=== PATIENT | male | born 1940 | race Caucasian/White ===

== ENCOUNTER 2018-05-19 19:16 | Emergency (ER) | payer OTHER ==
--- OUTSIDE RECORDS SUMMARY | 2018-05-19 19:19 | XMS REPORT | Clinical Summary ---
:1940 Author Organization [facility] Address [address] [place] [address] Care Team Providers Name Role Phone Johnathan Dozier MD Primary Care Provider Allergies Active Allergy Reactions Severity Noted Date Comments No Known Drug Allergies Medications Medication Sig Dispensed Refills Start Date End Date Status XIIDRA 5 % INSTILL ONE 5 03/01/2017 Active dropperette (1) DROP INTO BOTH EYES TWICE DAILY. simvastatin (ZOCOR) TAKE ONE (1) 90 tablet 3 08/27/2017 Active 20 MG TABLET(S) BY tabletIndications: MOUTH ONCE A Hyperlipidemia, DAY. unspecified hyperlipidemia type simvastatin (ZOCOR) TAKE 1 TAB PO 90 tablet 3 07/18/2016 06/13/2017 Discontinued 20 MG QD tabletIndications: Hyperlipidemia, unspecified hyperlipidemia type thyroid, pork, 0 05/13/2016 05/21/2017 Discontinued (ARMOUR THYROID) 30 mg tablet simvastatin (ZOCOR) Take 1 tablet 90 tablet 3 06/13/2017 08/27/2017 Discontinued 20 MG (20 mg total) tabletIndications: by mouth Hyperlipidemia, nightly. unspecified hyperlipidemia type Active Problems Problem Noted Date Coronary arteriosclerosis 11/20/2016 Peripheral vascular disease 11/20/2016 History of coronary artery bypass surgery 05/15/2016 Hyperlipidemia 05/15/2016 Hypogonadism in male 10/08/2010 Encounters Date Type Specialty Care Team Description 08/27/2017 Refill Cardiology Nghia Olson MD Med Refill 06/13/2017 Orders Only Cardiology Frandy Garcia MA Hyperlipidemia, unspecified hyperlipidemia type 05/21/2017 Office Visit Cardiology Nghia Olson MD History of coronary artery bypass surgery (Primary Dx) after 05/18/2017 Social History Tobacco Use Types Packs/Day Years Used Date Never Smoker Smokeless Tobacco: Never Used Sex Assigned at Date Recorded Not on file Job Start Date Occupation Industry Not on file Not on file Not on file Travel History Travel Start Travel End No recent travel history available. Last Filed Vital Signs Vital Sign Reading Time Taken Blood Pressure 140/68 05/21/2017 10:10 AM CDT Pulse 70 05/21/2017 10:10 AM CDT Temperature - - Respiratory Rate - - Oxygen Saturation - - Inhaled Oxygen Concentration - - Weight 73.9 kg (163 lb) 05/21/2017 10:10 AM CDT Height 165.1 cm (5' 5") 05/21/2017 10:10 AM CDT Body Mass Index 27.12 05/21/2017 10:10 AM CDT Plan of Treatment Date Type Specialty Care Team Description 05/20/2018 Office Visit Cardiology Nghia Olson MD [address] [address] Health Maintenance Due Date Last Done Comments SHINGLES VACCINES (#1) 1988 65+ PNEUMOCOCCAL VACCINE (1 of 2 - PCV13) 09/20/2003 PNEUMOCOCCAL POLYSACCHARIDE VACCINE AGE 65 AND OVER 09/20/2003 INFLUENZA VACCINE 09/25/2017 Results Not on fileafter 05/18/2017 Insurance Payer Benefit Plan / Group Subscriber ID Type Phone Address [employer] MEDICARE HU[employer]NA MEDICARE PPO/PFFS/[facility] xxxxxxxxx PPO Advance Directives Patient has advance care planning documents on file. For more information, please contact:Eleazar Espinoza[address] [place] [address]
--- NOTE | 2018-05-19 20:31 | RAD REPORT ---
EXAM DESCRIPTION: RAD - Knee Right 3 View - 05/19/2018 8:07 pm CLINICAL HISTORY: Pain;Deformity COMPARISON: No comparisons FINDINGS: A patella fracture is present with moderate distraction of the fracture fragments. Moderat e soft tissue swelling is evident. Chondrocalcinosis is seen of the menisci.
--- NOTE | 2018-05-19 20:35 | ER ---
Nurse's Notes [facility] Name: Saeid Rosas Age: 77 yrs Sex: Male : 1940 Arrival Date: 05/19/2018 Time: 19:09 Bed 30 Private MD: Diagnosis: Displaced transverse fracture of right patella Presentation: 05/19 19:09 Presenting complaint: EMS states: fell walking in front yard, tripped, landed on his knee, has obvious knee deformity R knee. Transition of care: patient was not received from another setting of care. Onset of symptoms was May 19, 2018 at 18:20. Risk Assessment: Do you want to hurt yourself or someone else? Patient reports no desire to harm self or others. Initial Sepsis Screen: Does the patient meet any 2 criteria? No. Patient's initial sepsis screen is negative. Does the patient have a suspected source of infection? No. Patient's initial sepsis screen is negative. Care prior to arrival: None. 19:09 Method Of Arrival: EMS: [facility] 19:09 Acuity: ANDREA 3 ch Historical: - Allergies: 19:17 No Known Allergies; ch - Home Meds: 19:17 Simvastatin Oral [Active]; armor thyroid [Active]; aspirin 81 mg Oral chew 1 tab once ch daily [Active]; - PMHx: 19:17 Hyperlipidemia; Myocardial infarction; Hypothyroidism; Back pain; ch - PSHx: 19:17 cardiac bypass; laminectomy; Appendectomy; Tonsillectomy; ch - Immunization history:: Adult Immunizations up to date. - Social history:: Smoking status: Patient/guardian denies using tobacco, Patient/guardian denies using alcohol, street drugs. - Ebola Screening: : Patient negative for fever greater than or equal to 101.5 degrees Fahrenheit, and additional compatible Ebola Virus Disease symptoms Patient denies exposure to infectious person Patient denies travel to an Ebola-affected area in the 21 days before illness onset No symptoms or risks identified at this time. - Family history:: not pertinent. - Hospitalizations: : No recent hospitalization is reported. Screenin:35 Abuse screen: Denies threats or abuse. Denies injuries from another. Nutritional aa1 screening: No deficits noted. Tuberculosis screening: No symptoms or risk factors identified. Fall Risk Fall in past 12 months (25 points). Assessment: 19:35 General: Appears in no apparent distress. comfortable, Behavior is calm, cooperative, aa1 appropriate for age. Pain: Complains of pain in right knee Pain currently is 3 out of 10 on a pain scale. Quality of pain is described as aching. Neuro: Level of Consciousness is awake, alert, obeys commands, Oriented to person, place, time, situation, Moves all extremities. Speech is normal. Respiratory: Airway is patent Respiratory effort is even, unlabored, Respiratory pattern is regular, symmetrical. GI: No signs and/or symptoms were reported involving the gastrointestinal system. : No signs and/or symptoms were reported regarding the genitourinary system. EENT: No signs and/or symptoms were reported regarding the EENT system. Derm: Skin is intact, is healthy with good turgor, Skin is pink, warm \T\ dry. Musculoskeletal: Circulation, motion, and sensation intact. Capillary refill < 3 seconds, Range of motion: limited in right knee Swelling present in right knee. 20:55 Reassessment: Patient appears in no apparent distress at this time. Patient and/or aa1 family updated on plan of care and expected duration. Pain level reassessed. Patient is alert, oriented x 3, equal unlabored respirations, skin warm/dry/pink. Discussed d/c \T\ f/u instructions with pt; denies questions or concerns at this time. 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 Will d/c pt once his ride has arrived with his clothes. 21:43 Reassessment: Patient appears in no apparent distress at this time. Patient is alert, aa1 oriented x 3, equal unlabored respirations, skin warm/dry/pink. Pt's ride present and dc'd home at this time. Vital Signs: 19:17 BP 147 / 69; Pulse 88; Resp 16; Temp 97.9; Pulse Ox 99% on R/A; Pain 4/10; ch 20:00 BP 142 / 69; Pulse 68; Resp 18; Pulse Ox 97% on R/A; Pain 3/10; aa1 20:31 BP 129 / 53 LA (auto/reg); Pulse 83; Pulse Ox 98% on R/A; Pain 4/10; jp3 ED Course: 19:09 Patient arrived in ED. 19:10 Triage completed. 19:11 Enrique Hudson MD is Attending Physician. rn 19:17 Arm band placed on left wrist. Patient placed in an exam room, on a stretcher, on pulse ch oximetry. 19:35 Patient has correct armband on for positive identification. Bed in low position. Call aa1 light in reach. Pulse ox on. NIBP on. Warm blanket given. 19:45 Ice pack to injury. jp3 20:08 XRAY Knee RIGHT 3 view In Process Unspecified. EDMS 20:28 Cecelia Jean, RN is Primary Nurse. aa1 20:39 No provider procedures requiring assistance completed. Patient did not have IV access aa1 during this emergency room visit. 21:04 Crutch training done. Knee immobilizer applied on right knee. jp3 Administered Medications: No medications were administered Outcome: 20:34 Discharge ordered by MD. rn 21:43 Discharged to home with crutches, with family, with friend. aa1 21:43 Condition: good 21:43 Discharge instructions given to patient, family, Instructed on discharge instructions, follow up and referral plans. medication usage, crutch walking, Demonstrated understanding of instructions, follow-up care, medications, crutch walking, Prescriptions given X 1. 21:44 Patient left the ED. aa1 Signatures: Dispatcher [employer] EDHI Christina Zamora, MIKE MCKEON Cecelia Jean, MIKE RN aa1 Enrique Hudson MD MD rn Pisarski, Jacob jp3
--- NOTE | 2018-05-19 20:35 | EDPHYS ---
Physician Documentation [facility] Name: Saeid Rosas Age: 77 yrs Sex: Male : 1940 Arrival Date: 05/19/2018 Time: 19:09 Bed 30 Private MD: ED Physician Enrique Hudson HPI: 05/19 19:33 This 77 yrs old Male presents to ER via EMS with complaints of Knee Injury, rn Fall Injury. 19:33 Details of fall: The patient fell from an upright position, while walking. Onset: The rn symptoms/episode began/occurred just prior to arrival. Associated injuries: The patient sustained right knee. Severity of symptoms: At their worst the symptoms were moderate, in the emergency department the symptoms are unchanged. The patient has not experienced similar symptoms in the past. Reports fall from standing, hit right knee directly, unable to walk on that leg, no other injuries, takes daily aspirin.. Historical: - Allergies: 19:17 No Known Allergies; ch - Home Meds: 19:17 Simvastatin Oral [Active]; armor thyroid [Active]; aspirin 81 mg Oral chew 1 tab once ch daily [Active]; - PMHx: 19:17 Hyperlipidemia; Myocardial infarction; Hypothyroidism; Back pain; ch - PSHx: 19:17 cardiac bypass; laminectomy; Appendectomy; Tonsillectomy; ch - Immunization history:: Adult Immunizations up to date. - Social history:: Smoking status: Patient/guardian denies using tobacco, Patient/guardian denies using alcohol, street drugs. - Ebola Screening: : Patient negative for fever greater than or equal to 101.5 degrees Fahrenheit, and additional compatible Ebola Virus Disease symptoms Patient denies exposure to infectious person Patient denies travel to an Ebola-affected area in the 21 days before illness onset No symptoms or risks identified at this time. - Family history:: not pertinent. - Hospitalizations: : No recent hospitalization is reported. ROS: 19:33 Constitutional: Negative for fever, chills, and weight loss, Neck: Negative for injury, rn pain, and swelling, Cardiovascular: Negative for chest pain, palpitations, and edema, Abdomen/GI: Negative for abdominal pain, nausea, vomiting, diarrhea, and constipation, Back: Negative for injury and pain, MS/Extremity: + right knee injury and pain Skin: Negative for injury, rash, and discoloration, Neuro: Negative for headache, weakness, numbness, tingling, and seizure. Exam: 19:33 Constitutional: This is a well developed, well nourished patient who is awake, alert, rn and in no acute distress. MS/ Extremity: Pulses equal, no cyanosis. + swelling anterior to right patella, very minimal to no extensor movement of right knee. No tenderness along right hip/femur, no tenderness along tib/fib/ankle/foot on right side. Neuro: Awake and alert, GCS 15, oriented to person, place, time, and situation. Sensory grossly intact. Vital Signs: 19:17 BP 147 / 69; Pulse 88; Resp 16; Temp 97.9; Pulse Ox 99% on R/A; Pain 4/10; ch 20:00 BP 142 / 69; Pulse 68; Resp 18; Pulse Ox 97% on R/A; Pain 3/10; aa1 20:31 BP 129 / 53 LA (auto/reg); Pulse 83; Pulse Ox 98% on R/A; Pain 4/10; jp3 MDM: 19:11 Patient medically screened. rn 20:31 Differential diagnosis: contusion, fracture, sprain. Data reviewed: vital signs, nurses rn notes, radiologic studies, plain films, and as a result, I will discharge patient. Counseling: I had a detailed discussion with the patient and/or guardian regarding: the historical points, exam findings, and any diagnostic results supporting the discharge/admit diagnosis, radiology results, the need for outpatient follow up, to return to the emergency department if symptoms worsen or persist or if there are any questions or concerns that arise at home. Response to treatment: the patient's symptoms have mildly improved after treatment, and as a result, I will discharge patient. Special discussion: I discussed with the patient/guardian in detail that at this point there is no indication for admission to the hospital. It is understood, however, that if the symptoms persist or worsen the patient needs to return immediately for re-evaluation. Based on the history and exam findings, there is no indication for further emergent testing or inpatient evaluation. I discussed with the patient/guardian the need to see the orthopedic surgeon for further evaluation of the symptoms. ED course: Consulted with Dr. Moya, recommends dc home with knee immobilizer and crutches, and f/u in next 2 days. . 05/19 19:22 Order name: XRAY Knee RIGHT 3 view; Complete Time: 20:35 rn 05/19 20:08 Order name: Knee Immobilizer; Complete Time: 21:03 rn 05/19 20:30 Order name: Crutches; Complete Time: 21:03 rn Administered Medications: No medications were administered Disposition: 05/19/18 20:34 Discharged to Home. Impression: Displaced transverse fracture of right patella. - Condition is Stable. - Discharge Instructions: Patellar Fracture, Adult. - Prescriptions for Tylenol- Codeine #3 300-30 mg Oral Tablet - take 1 tablet by ORAL route every 6 hours As needed; 20 tablet. - Medication Reconciliation Form, Thank You Letter, Antibiotic Education, Prescription Opioid Use form. - Follow up: Private Physician; When: As needed; Reason: Recheck today's complaints, Re-evaluation by your physician. - Problem is new. - Symptoms have improved. Signatures: Dispatcher [employer] EDMS Christina Zamora RN RN Cecelia Jean RN RN aa1 Enrique Hudson MD MD internal corrosion specialist: (The following items were deleted from the chart) 21:44 20:34 05/19/2018 20:34 Discharged to Home. Impression: Displaced transverse fracture of aa1 right patella. Condition is Stable. Forms are Medication Reconciliation Form, Thank You Letter, Antibiotic Education, Prescription Opioid Use. Follow up: Private Physician; When: As needed; Reason: Recheck today's complaints, Re-evaluation by your physician. Problem is new. Symptoms have improved. rn
== END 2018-05-19 21:44 | disposition home or self-care (01) ==
LOC: ER 19:16
DX: S82.001A Unspecified fracture of right patella, initial encounter for closed fracture (principal); W01.0XXA Fall on same level from slipping, tripping and stumbling without subsequent striking against object, initial encounter; Y93.9 Activity, unspecified; Y92.007 Garden or yard of unspecified non-institutional (private) residence as the place of occurrence of the external cause; E03.9 Hypothyroidism, unspecified; E78.5 Hyperlipidemia, unspecified
CPT/HCPCS: 99284

== ENCOUNTER 2020-12-26 05:57 | Observation (INO) | payer OTHER ==
[2020-12-26 07:33] LABS: Basophils % 1.1 % (0-1.3); Hematocrit 43.3 % (39.6-49.0); Lymphocytes % 23.6 % (15.3-44.8); MPV 8.5 fL (7.6-11.3); RBC Red Blood Cell Count 4.69 M/uL (4.33-5.43)
[2020-12-26 07:41] LABS: Protime INR 0.91
[2020-12-26 07:54] LABS: ALT/SGPT 21 U/L (12-78); AST/SGOT 22 U/L (15-37); Albumin 3.9 g/dL (3.4-5.0); Alkaline Phosphatase 65 U/L (45-117); BUN Blood Urea Nitrogen 14 mg/dL (7-18); Bicarbonate 28 mmol/L (21-32); Bilirubin Direct 0.2 mg/dL (0-0.2); Bilirubin Total 0.6 mg/dL (0.2-1.0); Glucose Level 109 mg/dL (74-106); Magnesium 2.3 mg/dL (1.8-2.4); NT PRO-BNP 184 pg/mL (<450); Potassium 4.4 mmol/L (3.5-5.1); Protein, Total 7.7 g/dL (6.4-8.2); Sodium Level 143 mmol/L (136-145); Troponin (Emerg Dept Use Only) < 0.02 ng/mL (0.0-0.045)
--- NOTE | 2020-12-26 08:23 | ER ---
Nurse's Notes [facility] Name: Saeid Rosas Age: 80 yrs Sex: Male : 1940 Arrival Date: 12/26/2020 Time: 06:02 Bed 20 Private MD: Diagnosis: Chest pain, unspecified Presentation: 12/26 06:22 Chief complaint: Patient states: Reports waking up about 0400 and had a discomfort to lp1 chest; Denies any dizziness, shortness of breath, N/V. Coronavirus screen: At this time, the client does not indicate any symptoms associated with coronavirus-19. Ebola Screen: No symptoms or risks identified at this time. Initial Sepsis Screen: Does the patient meet any 2 criteria? No. Patient's initial sepsis screen is negative. Does the patient have a suspected source of infection? No. Patient's initial sepsis screen is negative. Risk Assessment: Do you want to hurt yourself or someone else? Patient reports no desire to harm self or others. Onset of symptoms was December 26, 2020 at 04:00. 06:22 Method Of Arrival: Ambulatory lp1 06:22 Acuity: ANDREA 3 lp1 Historical: - Allergies: 06:23 No Known Allergies; lp1 - Home Meds: 06:23 aspirin 81 mg Oral chew 1 tab once daily [Active]; lp1 - PMHx: 06:23 Back pain; Hyperlipidemia; Hypothyroidism; Myocardial infarction; lp1 - PSHx: 06:23 heart stents; lp1 - Immunization history:: Adult Immunizations up to date. - Social history:: Smoking status: Patient denies any tobacco usage or history of. Screenin:20 Abuse screen: Denies threats or abuse. Nutritional screening: No deficits noted. cc4 Tuberculosis screening: No symptoms or risk factors identified. Fall Risk None identified. Assessment: 06:20 General: Appears in no apparent distress. Behavior is calm, cooperative. Pain: Denies cc4 pain. Complains of pain in chest pressure "1" on pain scale Pain does not radiate. Pain currently is 0 out of 10 on a pain scale. at worst was 1 out of 10 on a pain scale. Quality of pain is described as pressure, Pain began 0400 12/26/2020. Neuro: No deficits noted. Level of Consciousness is awake, alert, obeys commands, Oriented to person, place, time, situation. Cardiovascular: Denies chest pain, States, "I didn't have chest pain", "My chest didn't feel right when I woke up \\T\\ 4:00 this morning", "Maybe some pressure". 06:20 General: EKG done; # 20 g angiocath inserted right peripheral wrist x 2 attempts with cc4 blood drawn \\T\\ sent to lab.. Respiratory: No deficits noted. Breath sounds are clear bilaterally. Denies any SOB. GI: No signs and/or symptoms were reported involving the gastrointestinal system. Abdomen is round Bowel sounds present X 4 quads. : No signs and/or symptoms were reported regarding the genitourinary system. EENT: No signs and/or symptoms were reported regarding the EENT system. Eyes clear. Nares are clear. Derm: No deficits noted. Skin is intact. Musculoskeletal: No deficits noted. Capillary refill < 3 seconds, Range of motion: intact in all extremities. 06:35 Cardiovascular: Denies chest pain, Continued SR with couplets \\T\\ short runs of bigeminy cc4 PVC's noted with O2 applied \\T\\ 2L/NBP; denies SOB or chest pain. 07:16 Reassessment: small engine technician at bedside for blood re-draw. sl2 07:52 Reassessment: Patient AAO x 3. sitting up in bed, shows no signs of acute distress or sl2 discomfort, denies chest pain or pressure, denies having any untoward symptoms at this time. Pain: Denies pain. Neuro: No deficits noted. Level of Consciousness is awake, alert, obeys commands, Oriented to person, place, time, situation, Identity Management Developer are equal bilaterally Moves all extremities. Gait is steady, Speech is normal, Facial symmetry appears normal. Cardiovascular: Denies chest pain, fatigue, lightheadedness, nausea, palpitations, shortness of breath, syncope, Rhythm is sinus rhythm with unifocal PVCs. Respiratory: No deficits noted. Breath sounds are clear bilaterally. GI: No signs and/or symptoms were reported involving the gastrointestinal system. Abdomen is round Bowel sounds present X 4 quads. : No signs and/or symptoms were reported regarding the genitourinary system. EENT: No signs and/or symptoms were reported regarding the EENT system. Derm: No deficits noted. No signs and/or symptoms reported regarding the dermatologic system. Skin is intact, Skin is dry, Skin is pink, warm \\T\\ dry. Skin temperature is warm. Musculoskeletal: No signs and/or symptoms reported regarding the musculoskeletal system. Capillary refill < 3 seconds, Range of motion: intact in all extremities. 09:27 Reassessment: nasal swab specimen for Covid collected and sent to lab. [facility] 10:28 Reassessment: Patient sitting up comfortably in bed - denies chest pain or any untoward [facility] symptoms at this time, will continue to re-assess and monitor. Awaiting bed assignment for inpatient admission. 12:11 Reassessment: Nursing report given to Romelia Rivera for inpatient admission to room 2 213. Vital Signs: 06:12 BP 179 / 82; Pulse 75; Resp 20; Temp 97.8(O); Pulse Ox 100% on R/A; cc4 06:22 BP 179 / 82; Pulse 70; Resp 18; Pulse Ox 100% on R/A; Weight 73.48 kg (R); Height 5 ft. lp1 7 in. (170.18 cm); Pain 5/10; 06:35 BP 186 / 85; Pulse 65; Resp 20; Pulse Ox 99% on R/A; cc4 07:51 BP 149 / 69; Pulse 71; Resp 18; Temp 97.9(O); Pulse Ox 99% on R/A; sl2 08:00 BP 134 / 80; Pulse 66; Resp 18; Pulse Ox 99% on R/A; sl2 08:30 BP 171 / 70; Pulse 61; Resp 18; Temp 97.8(O); Pulse Ox 99% on R/A; sl2 09:30 BP 157 / 82; Pulse 67; Resp 18; Temp 97.9(O); Pulse Ox 99% on R/A; sl2 10:00 BP 177 / 75; Pulse 69; Resp 18; Pulse Ox 99% on R/A; sl2 11:30 BP 166 / 88; Pulse 77; Resp 18; Temp 97.9; Pulse Ox 99% on R/A; sl2 11:52 BP 166 / 76; Pulse 68; Resp 18; Pulse Ox 99% on R/A; sl2 06:22 Body Mass Index 25.37 (73.48 kg, 170.18 cm) lp1 Vitals: 06:35 Cardiac Rhythm Assessment Irregular Sinus rhythm Other \\T\\ intermittent bigeminy PVC's; cc4 O2 sat 99% on RA; O2 applied \\T\\ 2 L/NBP; O2 sat increased to 100%; reports h/o PVC's; reports h/o of bypass heart surgery unknown year. ED Course: 06:02 Patient arrived in ED. bp1 06:06 Viraj Yo PA is PHCP. jm 06:06 Deion Alcantara MD is Attending Physician. jmm 06:21 XRAY Chest (1 view) In Process Unspecified. EDMS 06:23 Triage completed. lp1 06:24 Arm band placed on. lp1 06:24 Patient has correct armband on for positive identification. Placed in gown. Cardiac lp1 monitor on. Pulse ox on. NIBP on. 06:24 Patient maintains SpO2 saturation greater than 95% on room air. lp1 06:47 Joelle De Souza, RN is Primary Nurse. cc4 07:09 CBC with Diff Sent. cc4 07:09 LFT's Sent. cc4 07:09 Magnesium Sent. cc4 07:09 NT PRO-BNP Sent. cc4 07:10 PT-INR Sent. cc4 07:10 Troponin (emerg Dept Use Only) Sent. cc4 07:10 Basic Metabolic Panel Sent. cc4 07:10 Basic Metabolic Panel Sent. cc4 08:22 Lorraine Lancaster MD is Hospitalizing Provider. [facility] 12:13 No provider procedures requiring assistance completed. Patient admitted, IV remains in sl2 place. Administered Medications: No medications were administered Outcome: 08:22 Decision to Hospitalize by Provider. [facility] 12:13 Admitted to Med/surg accompanied by tech, room 213, with oxygen, on monitor, with sl2 chart, Report called to Romelia Rivera RN. 12:13 Condition: stable 12:13 Instructed on the need for admit. 13:06 Patient left the ED. sl2 Signatures: Dispatcher [employer] EDMS Viraj Yo PA PA Eula Moore, RN RN lp1 Yesi Agrawal [facility] Joelle De Souza, MIKE RN cc4 Randa Coyle RN RN sl2 Corrections: (The following items were deleted from the chart) 10:51 10:30 BP 120 / 88; Pulse 98bpm; Resp 16bpm; Pulse Ox 98% RA; Temp 98.5F Oral; sl2 sl2 10:51 10:49 Reassessment: Patient denies nausea at this time - however c/o headache . sl2 Will notify EDP of same. sl2
--- NOTE | 2020-12-26 08:23 | EDPHYS ---
Physician Documentation [facility] Name: Saeid Rosas Age: 80 yrs Sex: Male : 1940 Arrival Date: 12/26/2020 Time: 06:02 Bed 20 Private MD: ED Physician Deion Alcantara HPI: 12/26 06:13 This 80 yrs old Male presents to ER via Unassigned with complaints of Chest jmm Pressure. 06:13 Onset: The symptoms/episode began/occurred this morning, at 04:00. Associated signs and jmm symptoms: Pertinent negatives: abdominal pain, cough. Modifying factors: The patient symptoms are alleviated by nothing, the patient symptoms are aggravated by nothing. The patient has not experienced similar symptoms in the past. This is an 80-year-old male with history of coronary artery disease and presents emerge department with complaints of substernal chest discomfort which will occasionally radiate to the back. This began at approximately 4 AM this morning. Patient states he has had previous stents. Patient did take aspirin earlier this morning. Denies shortness of breath, cough, fever, abdominal pain. Historical: - Allergies: 06:23 No Known Allergies; lp1 - Home Meds: 06:23 aspirin 81 mg Oral chew 1 tab once daily [Active]; lp1 - PMHx: 06:23 Back pain; Hyperlipidemia; Hypothyroidism; Myocardial infarction; lp1 - PSHx: 06:23 heart stents; lp1 - Immunization history:: Adult Immunizations up to date. - Social history:: Smoking status: Patient denies any tobacco usage or history of. ROS: 06:13 Constitutional: Negative for fever, chills, and weight loss. jmm 06:13 Cardiovascular: Positive for chest pain. 06:13 Back: Positive for radiated pain. 06:13 All other systems are negative. Exam: 06:13 Constitutional: This is a well developed, well nourished patient who is awake, alert, jmm and in no acute distress. Head/Face: atraumatic. Eyes: EOMI, no conjunctival erythema appreciated ENT: Moist Mucus Membranes Neck: Trachea midline, Supple Chest/axilla: Normal chest wall appearance and motion. 06:13 Respiratory: Normal respirations, no respiratory distress appreciated Abdomen/GI: Non distended, soft Back: Normal ROM Skin: General appearance color normal MS/ Extremity: Moves all extremities, no obvious deformities appreciated, no edema noted to the lower extremities Neuro: Awake and alert, normal gait Psych: Behavior is normal, Mood is normal, Patient is cooperative and pleasant 06:13 Cardiovascular: Rate: normal. Vital Signs: 06:12 BP 179 / 82; Pulse 75; Resp 20; Temp 97.8(O); Pulse Ox 100% on R/A; cc4 06:22 BP 179 / 82; Pulse 70; Resp 18; Pulse Ox 100% on R/A; Weight 73.48 kg (R); Height 5 ft. lp1 7 in. (170.18 cm); Pain 5/10; 06:35 BP 186 / 85; Pulse 65; Resp 20; Pulse Ox 99% on R/A; cc4 07:51 BP 149 / 69; Pulse 71; Resp 18; Temp 97.9(O); Pulse Ox 99% on R/A; sl2 08:00 BP 134 / 80; Pulse 66; Resp 18; Pulse Ox 99% on R/A; sl2 08:30 BP 171 / 70; Pulse 61; Resp 18; Temp 97.8(O); Pulse Ox 99% on R/A; sl2 09:30 BP 157 / 82; Pulse 67; Resp 18; Temp 97.9(O); Pulse Ox 99% on R/A; sl2 10:00 BP 177 / 75; Pulse 69; Resp 18; Pulse Ox 99% on R/A; sl2 11:30 BP 166 / 88; Pulse 77; Resp 18; Temp 97.9; Pulse Ox 99% on R/A; sl2 11:52 BP 166 / 76; Pulse 68; Resp 18; Pulse Ox 99% on R/A; sl2 06:22 Body Mass Index 25.37 (73.48 kg, 170.18 cm) lp1 MDM: 06:12 Patient medically screened. jaquan 08:21 Data reviewed: vital signs, nurses notes. Counseling: I had a detailed discussion with jaquan the patient and/or guardian regarding: the historical points, exam findings, and any diagnostic results supporting the discharge/admit diagnosis, lab results, radiology results, the need for further work-up and treatment in the hospital. 12/26 06:06 Order name: Basic Metabolic Panel jaquan 12/26 06:06 Order name: CBC with Diff; Complete Time: 07:45 [place] 12/26 06:06 Order name: LFT's; Complete Time: 07:55 [place] 12/26 06:06 Order name: Magnesium; Complete Time: 07:55 [place] 12/26 06:06 Order name: NT PRO-BNP; Complete Time: 07:55 [place] 12/26 06:06 Order name: PT-INR; Complete Time: 07:55 [place] 12/26 06:06 Order name: Troponin (emerg Dept Use Only); Complete Time: 07:55 [place] 12/26 06:06 Order name: Basic Metabolic Panel; Complete Time: 07:55 [facility] 12/26 09:46 Order name: SARS-COV-2 RT PCR; Complete Time: 10:45 [facility] 12/26 11:08 Order name: Basic Metabolic Panel [facility] 12/26 11:08 Order name: Basic Metabolic Panel [facility] 12/26 11:08 Order name: CBC with Automated Diff [facility] 12/26 11:08 Order name: Lipid Profile [facility] 12/26 06:06 Order name: XRAY Chest (1 view); Complete Time: 08:43 [place] 12/26 06:06 Order name: EKG; Complete Time: 06:07 [place] 12/26 06:06 Order name: Cardiac monitoring; Complete Time: 07:10 [place] 12/26 06:06 Order name: EKG - Nurse/Tech; Complete Time: 07:10 [place] 12/26 11:07 Order name: Heart Healthy [facility] 12/26 11:07 Order name: Echo with Doppler [facility] 12/26 11:08 Order name: Echo with Doppler [facility] 12/26 11:08 Order name: EKG Electrocardiogram [facility] 12/26 11:08 Order name: EKG Electrocardiogram [facility] 12/26 11:08 Order name: Lipid Profile [facility] 12/26 11:08 Order name: PTT, Activated Partial Thromb [facility] 12/26 11:08 Order name: PTT, Activated Partial Thromb [facility] 12/26 11:08 Order name: Troponin I [facility] 12/26 11:08 Order name: Troponin I [facility] 12/26 11:08 Order name: Troponin I [facility] 12/26 11:08 Order name: CBC with Automated Diff [facility] 12/26 06:06 Order name: IV Saline Lock; Complete Time: 07:10 [place] 12/26 06:06 Order name: Labs collected and sent; Complete Time: 07:10 [place] 12/26 06:06 Order name: O2 Per Protocol; Complete Time: 07:09 [place] 12/26 06:06 Order name: O2 Sat Monitoring; Complete Time: 07: [place] 12/26 06:41 Order name: Labs - recollect needed: cbc and chemistry; Complete Time: 07:10 mw2 Administered Medications: No medications were administered Disposition: 13:51 Co-signature as Attending Physician, Deion Alcantara MD I agree with the assessment and sp3 plan of care. Disposition Summary: 12/26/20 08:22 Hospitalization Ordered Hospitalization Status: Observation [place] Provider: Lorraine Lancaster Location: Telemetry/MedSurg (observation) [place] Condition: Stable [place] Problem: new jmm Symptoms: have improved jmm Bed/Room Type: Standard [place] Room Assignment: 213(12/26/20 11:37) bd Diagnosis - Chest pain, unspecified [place] Forms: - Medication Reconciliation Form jmm - SBAR form [place] Signatures: Dispatcher [employer] EDMS Nighat Dwyer bd Viraj Yo PA PA m Eula Grace, RN RN lp1 Jennifer Jara mw2 Deion Alcantara MD MD sp3 Corrections: (The following items were deleted from the chart) 09:47 07:57 CORONAVIRUS+Z ordered. EDTX EDMS 11:37 08:22 jm bd
--- NOTE | 2020-12-26 08:39 | RAD REPORT ---
EXAM DESCRIPTION: RAD - Chest Single View - 12/26/2020 6:21 am CLINICAL HISTORY: CHEST PAIN COMPARISON: None TECHNIQUE: AP portable chest image was obtained 12/26/2020 6:21 am . FINDINGS: No peripheral mass or consolidations seen. No failure or volume overload. Interstitial pat tern is mildly prominent suspected to be baseline. Heart and vasculature are normal. No measurable pl eural effusion and no pneumothorax. No acute bony abnormality seen. No acute aortic findings suspecte d. IMPRESSION: No acute cardiopulmonary process.
[2020-12-26] MEDS ORDERED: MORPHINE 4 MG/ML SYR IV PRN (11:03)
[2020-12-26] MEDS ORDERED: ACETAMINOPHEN 500 MG TAB PO PRN (11:03)
[2020-12-26 13:14] VITALS: O2SAT 99
[2020-12-26 14:39] VITALS: BMI 25.2
[2020-12-26] MEDS ORDERED: INFLUENZA VACCINE (for 6+ mo) 0.5 ML DOSE IMVAC ONE (15:00)
[2020-12-26 18:32] VITALS: BP 148/79; TEMP 97.7
[2020-12-26] MEDS ORDERED: METOPROLOL TAR 50 MG TAB PO SCH (21:00)
--- NOTE | 2020-12-26 21:37 | P.SSS ---
Patient History Date of Service: 12/26/20 Reason for admission: CHEST HEAVINESS History of Present Illness: SLOAN WOKE UP THIS AM WITH CHEST HEAVINESS. HE TOOK ONE ASPIRIN AND PAIN IS GONE NOW AFTER AN HOUR. HE HAS EKG WITH NO ST T CHANGES. HE HAS PVCS THAT ARE OLD. HE GOES TO DR. GROVE AND HE HAS APT IN AM FOR STRESS TEST. HE IS VERY EAGER AND STABLE TO GO HOME. 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 Allergies No Known Allergies Allergy (Unverified 12/26/20 12:16) Home medications list reviewed: Yes Home Medications: Ivermectin 1 tab PO EVERY 3RD DAY 12/26/20 - Past Medical/Surgical History Has patient received pneumonia vaccine in the past: No - Social History Smoking Status: Never smoker Alcohol use: No CD- Drugs: No Caffeine use: No Physical Examination - Vital Signs Temperature: 97.7 F Blood Pressure: 148/79 Pulse: 68 Respirations: 16 Pulse Ox (%): 100 - Physical Exam General: Alert, In no apparent distress HEENT: Atraumatic, PERRLA, Mucous membr. moist/pink, EOMI, Sclerae nonicteric Neck: Supple, 2+ carotid pulse no bruit, No LAD, Without JVD or thyroid abnormality Respiratory: Clear to auscultation bilaterally, Normal air movement Cardiovascular: Regular rate/rhythm, Normal S1 S2 Gastrointestinal: Normal bowel sounds, No tenderness Musculoskeletal: No tenderness Integumentary: No rashes Neurological: Normal gait, Normal speech, Normal strength at 5/5 x4 extr, Normal tone, Normal affect Lymphatics: No axilla or inguinal lymphadenopathy - Studies Laboratory Data (last 24 hrs) 12/26/20 07:13: PT 10.4, INR 0.91 12/26/20 07:13: WBC 4.30, Hgb 14.6, Hct 43.3, Plt Count 142 L 12/26/20 07:13: Sodium 143, Potassium 4.4, BUN 14, Creatinine 1.22, Glucose 109 H, Magnesium 2.3, Total Bilirubin 0.6, AST 22, ALT 21, Alkaline Phosphatase 65 - Diagnosis (Problem(s)) (1) Chest pain Status: Acute Plan: ST TEST IN AM [facility] HE DID NOT TAKE COVID VACCINE BUT INSTEAD IS TAKING IVERMECTIN GIVEN BY SOME INTERNET DOCTOR. HE IS MEDICALLY STABLE TO GO HOME. - Disposition Disposition: ROUTINE DISCHARGE
[2020-12-27] MEDS ORDERED: ENOXAPARIN 40 MG/0.4 ML SQ SCH (09:00)
[2020-12-27] MEDS ORDERED: ASPIRIN EC 81 MG TAB PO SCH (09:00)
== END 2020-12-26 18:00 | disposition home or self-care (01) ==
LOC: ER 05:57 → 2ND 12:24
PROVIDERS: ADMIT Internal Medicine; ATTEND Internal Medicine
DX: R07.9 Chest pain, unspecified (principal); E78.5 Hyperlipidemia, unspecified; E03.9 Hypothyroidism, unspecified; I25.2 Old myocardial infarction; M54.9 Dorsalgia, unspecified; Z95.5 Presence of coronary angioplasty implant and graft; Z79.82 Long term (current) use of aspirin; Z20.822 Contact with and (suspected) exposure to COVID-19
CPT/HCPCS: 93005; 85025; 80048; 36415; 83735; 85610; 80076; 84484 ×2; 83880; 71045; 99285; U0003; G0378 ×2

== ENCOUNTER 2022-09-08 17:04 | Observation (INO) | payer OTHER ==
--- OUTSIDE RECORDS SUMMARY | 2022-09-08 17:08 | XMS REPORT | Continuity of Care Document ---
:1940 Author Organization [facility] t Address [address] [place] [address] Care Team Providers Name Role Phone Johnathan Dozier MD Primary Care Physician Kanu Martínez Attending Clinician Unavailable KATHLEEN GROVE Attending Clinician Unavailable Maxim Serrano Attending Clinician Unavailable TIMUR QUINTERO Attending Clinician Unavailable VIOLETTA SIMPSON Attending Clinician Unavailable Maxim Serrano Attending Clinician Unavailable Maxim Serrano Attending Clinician Unavailable Johnathan Dozier V Admitting Clinician Unavailable Maxim Serrano Admitting Clinician Unavailable Payers Payer Name Policy Type Policy Number Effective Date Expiration Date [facility] P [id number] Problems Condition Condition Condition Status Onset Resolution Last Treating Co mments Source Name Details Category Date Date Treatment Clinician Date Frequent Frequent Disease Active Metho di unifocal unifocal 11-23 st PVCs PVCs 00:00: Hospita 00 l Dizziness Dizziness Disease Active Met hodi 05-04 st 00:00: Hospita 00 l CAD in CAD in Disease Active Methodi flandreau flandreau 11-20 st artery artery 00:00: Hospita 00 l Peripheral Peripheral Disease Active M ethodi vascular vascular 11-20 st disease disease 00:00: Hospita 00 l Hx of CABG Hx of CABG Disease Active M ethodi 3-21 st 00:00: Hospita 00 l Hyperlipid Hyperlipid Disease Active 0 M ethodi emia emia 05-15 00:00: Hospita 00 l Hypogonadi Hypogonadi Disease Active 0 M ethodi sm in male sm in male 10-08 st 00:00: Hospita 00 l Allergies, Adverse Reactions, Alerts Allergy Allergy Status Severity Reaction(s) Onset Inactive Treating Comm ents Source Name Type Date Date Clinician No Known DA Active U 2019- [facility] Allergie 0-22 Clear s 00:00: Key 00 [facility] No Known DA Active U 2019- [facility] Allergie 0-22 Clear s 00:00: Key 00 [facility] No Known DA Active U 2004-0 [facility] Drug 7-24 Clear Intolera 00:00: Key nces 00 [facility] No Known DA Active U 2004-0 [facility] Contrast 7- Clear Allergie 00:00: Key s 00 [facility] No Known DA Active U 2004-0 [facility] Food 7- Clear Allergie 00:00: Key s 00 [facility] No Known DA Active U 2004-0 [facility] Other 7-24 Clear Allergie 00:00: Key s 00 [facility] PHENERGA DA Active U 2003-0 [facility] N 7- Clear 00:00: Key [facility] No Known Propensi Active Method i Drug ty to st Allergie adverse Hospita s reaction l s to drug Family History Family Member Diagnosis Comments Start Date Stop Date Source Natural mother Stroke [facility] Social History Social Habit Start Date Stop Date Quantity Comments Source Gender identity 2019-11-24 Identifies as male M ethodist 10:43:28 gender (finding) Hospital Sexual orientation 2019-11-24 Heterosexual Meth odist 10:43:28 (finding) Hospital Alcohol intake 2020-11-22 2020-11-22 Ex-drinker [facility] 00:00:00 00:00:00 (finding) Hospital History of Social 2020-11-22 2020-11-[address] function 00:00:00 00:00:00 Hospital Tobacco use and 2017-05-21 2017-05-21 Smokeless tobacco Me thodist exposure 00:00:00 00:00:00 non-user Hospital Sex Assigned At [address] [facility] Smoking Status Start Date Stop Date Source Never smoked tobacco [facility] Medications Ordered Filled Start Stop Current Ordering Indication Dosage Frequency Signature Comments Components Source Medication Medication Date Date Medication? Clinician (SIG) Name Name aspirin Yes 81mg QD Take 81 mg Meth timmy (ECOTRIN) 9-[address] 81 MG 13:48: daily. Hospita enteric 39 l coated tablet testosteron Yes 75mg Inject 75 M ethodi e 9-[address] (TESTOPEL) 13:48: the skin. Ho spita 75 mg 39 Once a l pellet month aspirin Yes 81mg QD Take 81 mg Meth timmy (ECOTRIN) 9-[address] 81 MG 13:48: daily. Hospita enteric 39 l coated tablet testosteron Yes 75mg Inject 75 M ethodi e 9-[address] (TESTOPEL) 13:48: the skin. Ho spita 75 mg 39 Once a l pellet month sertraline Yes TAKE ONE Met hodi (ZOLOFT) 25 5-14 (1) st MG tablet 00:00: TABLET(S) Hos oumar 00 BY MOUTH l ONCE A DAY. sertraline Yes TAKE ONE Met hodi (ZOLOFT) 25 5-14 (1) st MG tablet 00:00: TABLET(S) Hos oumar 00 BY MOUTH l ONCE A DAY. ivermectin Yes TAKE FOUR Me thodi (STROMECTOL 5-06 (4) st ) 3 mg 00:00: TABLET(S) Hospit a tablet 00 BY MOUTH l EVERY TWO WEEKS. ivermectin Yes TAKE FOUR Me thodi (STROMECTOL 5-06 (4) st ) 3 mg 00:00: TABLET(S) Hospit a tablet 00 BY MOUTH l EVERY TWO WEEKS. simvastatin 2019-02 Yes [id number] TAKE ONE Methodi (ZOCOR) 20 2-04 (1) st mg tablet 00:00: TABLET(S) Hos oumar 00 BY MOUTH l ONCE A DAY. simvastatin 2019-02 Yes [id number] TAKE ONE Methodi (ZOCOR) 20 2-04 (1) st mg tablet 00:00: TABLET(S) Hos oumar 00 BY MOUTH l ONCE A DAY. risedronate 2020-0 Yes Q30D every 30 Me thodi (ACTONEL) 9-19 (thirty) st 150 MG 00:00: days. Hospita tablet 00 l risedronate 2020-0 Yes Q30D every 30 Me thodi (ACTONEL) 9-19 (thirty) st 150 MG 00:00: days. Hospita tablet 00 l ARMOUR 2020-0 Yes Methodi THYROID 30 3-03 st mg tablet 00:00: Hospita 00 l ARMOUR 2020-0 Yes Methodi THYROID 30 3-03 st mg tablet 00:00: Hospita 00 l Vital Signs Vital Name Observation Time Observation Value Comments Source Systolic blood 2022-05-01 17:15:00 183 mm[Hg] [facility] pressure Diastolic blood 2022-05-01 17:15:00 79 mm[Hg] [facility] pressure Heart rate 2022-05-01 17:15:00 81 /min [facility] Body height 2022-05-01 17:15:00 172.7 cm [facility] Body weight 2022-05-01 17:15:00 75.751 kg [facility] BMI 2022-05-01 17:15:00 25.39 kg/m2 [facility] Procedures Procedure Date / Time Performed Performing Clinician Sourc e NM MYOCARDIAL PERFUSION 2022-05-23 19:28:18 [facility] REST STRESS 1 DAY CV STRESS TEST 2022-05-22 [facility]:38[facility] 2022-05-15 20:30:00 [facility] BILATERAL ECG 12-LEAD 2022-05-01 17:20:06 [facility] spital CV STRESS TEST NUCLEAR 2020-12-28 19:35:27 [facility] CARDIO NM MYOCARDIAL PERFUSION 2020-12-28 19:35:27 [facility] REST STRESS 1 DAY Plan of Care Planned Activity Planned Date Details Comments Source Future Scheduled 2022-09-04 COVID[facility]19 [facility] 16:13:45 [code = COVID-19 VACCINE (#1)] Future Scheduled 2022-09-04 65+ [facility]OCOCCAL [facility] Test 16:13:45 VACCINE (1 - PCV) [code = 65+ PNEUMOCOCCAL VACCINE (1 - PCV)] Future Scheduled 2022-09-04 SHINGLES VACCINES (1 Met [facility] Test 16:13:45 of 2) [code = SHINGLES VACCINES (1 of 2)] Future Scheduled 2022-09-04 INFLUENZA VACCINE Method [facility] Test 16:13:45 [code = INFLUENZA VACCINE] Future Scheduled 2021-12-09 HEPATITIS B VACCINES Met [facility] Test 21:40:25 (1 of 3 - 3-dose series) [code = HEPATITIS B VACCINES (1 of 3 - 3-dose series)] Future Scheduled 2021-12-09 COVID-19 VACCINE (#1) [facility] Test 21:40:25 [code = COVID-19 VACCINE (#1)] Future Scheduled 2021-12-09 65+ PNEUMOCOCCAL [facility] Test 21:40:25 VACCINE (1 - PCV) [code = 65+ PNEUMOCOCCAL VACCINE (1 - PCV)] Future Scheduled 2021-12-09 SHINGLES VACCINES (1 Met [facility] Test 21:40:25 of 2) [code = SHINGLES VACCINES (1 of 2)] Future Scheduled 2021-12-09 INFLUENZA VACCINE Method [facility] Test 21:40:25 [code = INFLUENZA VACCINE] Encounters Start End Encounter Admission Attending Care Care Encounter Source Date/Time Date/Time Type Type Clinicians Facility Department ID 2022-07-26 Outpatient [facility] [id number] [facility] 05:05:18 [id number] [facility] 2021-05-20 Outpatient [facility] [id number] [place] 13:46:20 -[id number] [facility] 2019-12-22 Inpatient FERDINAND Martí[facility] [id number] 13:30:00 Kanu Bella [facility] 2022-05-22 2022-05-22 Travel 1.2.840.1 [id number] [id number] Methodi 00:00:00 00:00:[address] 3[address]430.2.7 0.2.7.3.698 Ho spita .3.543150 084.8 l .8 2022-05-22 2022-05-22 Outpatient GROVE, [facility] [id number] 540 [place] 00:00:00 00:00:[address] KATHLEEN [address] 2022-05-15 2022-05-15 Travel 1.2.840.1 1.2.553.987 [id number] Methodi 00:00:00 00:00:[address] 3.430.2.7 0.2.7.3.698 Ho spita .3.258198 084.8 l .8 2022-05-15 2022-05-15 Outpatient [facility] [id number] [place] 00:00:00 00:00:00 KATHLEEN [address] 2022-05-01 2022-05-01 [place], 1.2.840.1 [id number] Methodi 11:10:00 11:20:00 Visit Kathleen Brannon [address]13.1.[address] 3.430.2.7 Hospit a .3.153047 l .8 2022-05-01 2022-05-01 Travel 1.2.840.1 1.2.671.129 [id number] Methodi 00:00:00 00:00:[address] 3.430.2.7 0.2.7.3.698 Ho spita .3.838467 084.8 l .8 2022-05-01 2022-05-01 Outpatient [facility] [id number] [place] 00:00:00 00:00:00 KATHLEEN [address] 2021-02-01 2021-02-01 Outpatient Elective Tschen, [facility] [id number] [facility] 18:27:00 18:27:00 Maxim 2020-12-27 2020-12-27 Travel 1.2.840.1 1.2.900.475 [id number] Methodi 00:00:00 00:00:[address] 3.430.2.7 0.2.7.3.698 Ho spita .3.473878 084.8 l .8 2020-12-27 2020-12-27 Outpatient GROVE, [facility] [id number] [place] 00:00:00 00:00:00 KATHLEEN [address] 2020-12-26 2020-12-26 Telephone [place], 1.2.840.1 [id number] Methodi 00:00:00 00:00:[address] 3.430.2.7 Hospit a .3.012636 l .8 2020-11-22 2020-11-22 Outpatient GR[place], [facility] [id number] [place] 00:00:00 00:00:00 KATHLEEN [address] 2020-08-03 2020-08-03 [facility] [id number] [place] 00:00:00 00:00:[address] 2020-05-10 2020-05-10 Outpatient GR[place], [facility] [id number] [place] 00:00:00 00:00:00 KATHLEEN [address] 2020-02-05 2020-02-05 Outpatient [facility]ON, [facility] [id number] [place] 00:00:00 00:00:[address] 2020-01-13 2020-01-13 Outpatient [facility]ON, [facility] [id number] [place] 00:00:00 00:00:[address] 2019-12-15 2019-12-15 Outpatient TATIANA, [facility] [id number] 771 [place] 00:00:00 00:00:00 VIOLETTA [address] 2019-11-24 2019-11-24 Outpatient [facility], [facility] [id number] [place] 00:00:00 00:00:[address] 2019-11-20 2019-11-20 Outpatient Maxim Serrano [facility] [id number] 18:41:00 23:59:00 Maixm Serrano [facility] 2019-11-10 2019-11-10 Outpatient MAINE, [facility] [id number] 137 [place] 00:00:00 00:00:00 KATHLEEN [address] 2019-07-07 2019-07-07 Outpatient MAINE [facility] [id number] [place] 00:00:00 00:00:00 KATHLEEN [address] 2019-05-05 2019-05-05 Outpatient MAINE [facility] [id number] 740 [place] 00:00:00 00:00:00 KATHLEEN [address] 2019-04-29 2019-04-29 Outpatient [facility] Maxim [facility] [id number] 20:35:00 20:35:00 Maxim Serrano [facility] Results Test Description Test Time Test Comments Results Result Comments Source ECG 12 lead 2022-05-01 18:30:07 Test Item Value Reference Range Interpretation Comme nts Ventricular rate (test code = 253) 66 Atrial rate (test code = 255) 66 [place] interval (test code = 266) 244 QRSD interval (test code = 260) 88 QT interval (test code = 264) 406 QTC interval (test code = 265) 425 P axis 1 (test code = 267) 52 QRS axis 1 (test code = 268) 26 T wave axis (test code = 270) 62 EKG impression (test code = 273) Sinus rhythm with 1st degree AV bl ock with frequent premature ventricular complexes-Otherwise normal ECG-In automated comparison with ECG of 03-AUG-2020 14:35,-No significant change was found[facility] [id number] 07:16:00 Test Item Value Reference Range Interpretation Comments SURGICAL PATH SPECIMENS (test code = SURG) RUN DATE: 12/24/19 [facility] *LIVE* PAGE 1 RUN TIME: 715 Specimen Inquiry RUN USER: INTERFACE PATIENT: SLOAN LAL LOC: JESSA #: [id number] AGE/SX: 79/M ROOM: RE12/21/19REG DR: Kanu Martínez III : 38 BED: DIS: STATUS: [facility] TLOC: SPEC #: [id number] RECD: 12/22/19 STATUS: PAN RE #: [id number] CAESAR: 12/22/[address] [facility] [address]: Kanu Martínez III, MD ENTERED: 12/24/19 SP TYPE: SURG SPEC OTHR DR: Johnathan Dozier MD ORDERED: GROSS AND MICRO CODES: [id number] - NOSE, NOS COPIES TO: Johnathan Dozier MD [address] [place] [address] Kanu [place] [address] [address] [email or web address] PROCEDURES: GROSS AND MICRO (Incomplete) TISSUES: 1. NOSE, NOS - Nasal cavity, septum 2. NOSE, NOS - Nasal cavity, inferior turbinates FINAL DIAGNOSIS Nasal septum, partial excision: Portions of bone and cartilage (gross examination). Nasal cavity, inferior turbinates: Mild chronic inflammation. GROSS AND MICROSCOPIC GROSS DESCRIPTION: Received in formalin and labeled nasal septum are multiple segments of bone and cartilage measuring 3.9 cm in largest dimension in aggregate. The specimen is for gross only. Specimen #2 shows multiple segments of pink-tolentino tissue and blood clot measuring 2.5 cm in largest dimension in aggregate. Sections are submitted. MICROSCOPIC EXAMINATION: Sections reveal respiratory mucosa with chronic inflammation. CONTINUED ON NEXT PAGE RUN DATE: 12/24/19 [facility] *LIVE* PAGE 2 RUN TIME: 715 Specimen Inquiry RUN USER: INTERFACE SPEC #: [id number] PATIENT: SLOAN LAL #[id number] (Continued) POST-OP DIAGNOSIS Deviated septum, turbinate hypertrophy PRE-OP DIAGNOSIS Deviated septum, turbinate hypertrophy Signed SIGNATURE ON FILE Belen Palacio MD 12/24/19 0716 END OF REPORT Novel Coronavirus 2018 [id number] 05:42:00 Test Item Value Reference Range Interpretation Comments Novel Coronavirus Negative Negative Positive r esults are 2019 Inhouse (test indicativ e of the presence code = COVNONPUI) ofSARS-CoV -2 RNA, clinical correlation wit h patient historyand othe r diagnostic info rmation is necessary to determinepatien t infection status. Positiv e results do not rule out bacterial infection or co -infection with other viru ses. Negative result s do not preclude SARS-C oV-2 infection andsh ould not be used as the drake e basis for patient managementdecis ions. Negative result s must be combined with otherclinical observations, p atient history, and epidemiological information . Detection of SARS-CoV-2 RNA may be affe cted bysample collec tion methods, storag e conditions, and /or stageof infection. Tara l RNA mutations, vacc inations, antiviraltherap eutics, antibiotics, chemotherapeuti c orimmunosuppres glen drugs have not been e valuated for effectson d etection. Results are for the identification of SARS-CoV-2 RNA usingthe MSDSonline.com M2000 Sy stem under the FDA Emergen cy UseAuthorizatio n. The testing is perf ormed by estrada ruiz in the procedures for the MSDSonline.[employer] M2000 molecular diagnostic SARS-CoV-2 assa y in vitro. PROTHROMBIN [id number] 15:08:00 Test Item Value Reference Range Interpretation Comments PROTHROMBIN TIME 11.1 SECONDS 9.3-12.9 N PATIENT (test code = PTP) INTERNATIONAL NORMAL 1.0 0.8-1.2 N TARGET INR BY RATIO (test code = INDICATIO N Indication INR) INR1. Prophylax is of venous thrombos is 2.0 - 3.0 (orthoped ic surgery), Proph ylaxis of venous throm bosis (other than hig h-risk surgery), Treat ment of Deep Vein Thrombosis/Pulm onary Embolism, Preve ntion of systemic emb olism - Tissue heart va lves, Acute Myocardia l Infarction (to prevent systemic emboli sm), Valvular heart disease, Atrial Fibrillation, Bileaflet mecha nical valve in aortic position.2. Mec hanical prosthetic valv es (high risk), 2. 5 - 3.5 Presence of Lup us Anticoagulant o r Antiphospholipi d Antibodies, Pre vention of systemic emb olism - Acute Myocardia l Infarction (to prevent recurrent infar ct). THROMBOPLASTIN TIME [id number] 15:08:00 Test Item Value Reference Range Interpretation Comments THROMBOPLASTIN TIME 36.6 Seconds 25.0-39.5 N Therape utic Range: PARTIAL (test code = 50.4 - 88.3 Seconds PTT) Effective 06/10/2018 PROTHROMBIN [id number] 15:04:00 Test Item Value Reference Range Interpretation Comments PROTHROMBIN TIME 11.1 SECONDS 9.3-12.9 N PATIENT (test code = PTP) INTERNATIONAL NORMAL 1.0 0.8-1.2 N TARGET INR BY RATIO (test code = INDICATIO N Indication INR) INR1. Prophylax is of venous thrombos is 2.0 - 3.0 (orthoped ic surgery), Proph ylaxis of venous throm bosis (other than hig h-risk surgery), Treat ment of Deep Vein Thrombosis/Pulm onary Embolism, Preve ntion of systemic emb olism - Tissue heart va lves, Acute Myocardia l Infarction (to prevent systemic emboli sm), Valvular heart disease, Atrial Fibrillation, Bileaflet mecha nical valve in aortic position.2. Mec hanical prosthetic valv es (high risk), 2. 5 - 3.5 Presence of Lup us Anticoagulant o r Antiphospholipi d Antibodies, Pre vention of systemic emb olism - Acute Myocardia l Infarction (to prevent recurrent infar ct). THROMBOPLASTIN TIME [id number] 15:04:00 Test Item Value Reference Range Interpretation Comments THROMBOPLASTIN TIME PARTIAL (test Seconds 25.0-39.5 code = PTT) BASIC METABOLIC [id number] 15:02:00 Test Item Value Reference Range Interpretation Comments SODIUM (test code = NA) 140 mEq/L 134-147 N POTASSIUM (test code = 4.6 mEq/L 3.4-5.0 N K) CHLORIDE (test code = 106 mEq/L 100-108 N CL) CARBON DIOXIDE (test 29 mEq/L 21-33 N code = CO2) ANION GAP (test code = 10 0-20 N GAP) GLUCOSE (test code = 97 mg/dL 70-110 N GLU) BLOOD UREA NITROGEN 22 mg/dL 7-18 H (test code = BUN) GLOMERULAR FILTRATION 58.1 70-80 L Units of measure = RATE (test code = GFR) ml/mi n/1.73 m2 CREATININE (test code = 1.2 mg/dL 0.6-1.3 N CREAT) CALCIUM (test code = 9.9 mg/dL 8.0-10.5 N CA) - XR CHEST 2 [id number] 14:54:00 [facility] 1940 Sex: M FAX: Kanu Bhagat III [phone] [place]: [address] St: PRE Name: SLOAN LAL [facility] : 1940 Age/S: 79/M [address] [place] [address] Blvd Unit #: [id number] Loc: [place] [address] Phys: Kanu Martínez III, MD Acct: [id number] Dis Date: Status: PRE SDC PHONE #: [phone] Exam Date: 12/17/2019 1433 FAX #: Reason: PREOP EXAMS: CPT CODE: [id number] XR CHEST 2 V [id number] EXAM: PA and lateral chest. EXAM DATE: December 17, 2019 CLINICAL HISTORY: PREOP COMPARISON: None Median sternotomy wires are present. Heart size is mildly enlarged. Atherosclerotic calcifications and tortuosity of the intrathoracic aorta is identified. The lungs appear free of acute disease. Osseous structures demonstrate no acuteabnormalities. IMPRESSION: No evidence of acute cardiopulmonary disease. at 5074 Reported and signed by: Gale Patrick M.D. CC: Kanu Martínez III, MD Technologist: Rosibel Gould RT(R) Trnscrd Date/Time/By: 12/17/2019 (9726) : By: Joaquim Orig Print D/T: S: 12/17/2019 (0070) PAGE 1 Signed ReportCBC W/AUTO [id number] 14:47:00 Test Item Value Reference Range Interpretation Comments WHITE BLOOD CELL (test code = 6.3 x10 3/uL 4.5-11.0 N WBC) RED BLOOD CELL (test code = 4.90 x10 6/uL 4.00-5.60 N RBC) HEMOGLOBIN (test code = HGB) 15.0 g/dL 12.5-16.9 N HEMATOCRIT (test code = HCT) 46.8 % 37.5-50.7 N MEAN CELL VOLUME (test code = 95.5 fL 81.0-99.0 N MCV) MEAN CELL HGB (test code = MCH) 30.6 pg 27.0-33.0 N MEAN CELL HGB CONCETRATION 32.1 g/dL 33.0-37.0 L (test code = MCHC) RED CELL DISTRIBUTION WIDTH CV 13.8 % 11.5-14.5 N (test code = RDW) RED CELL DISTRIBUTION WIDTH SD 48.7 fL 37.0-54.0 N (test code = RDW-SD) PLATELET COUNT (test code = 143 x10 3/uL 150-400 L PLT) MEAN PLATELET VOLUME (test code 10.9 fL 7.0-9.0 H = MPV) NEUTROPHIL % (test code = NT%) 72.2 % 56.0-77.0 N IMMATURE GRANULOCYTE % (test 0.3 % 0.0-2.0 N code = IG%) LYMPHOCYTE % (test code = LY%) 18.1 % 14.0-32.0 N MONOCYTE % (test code = MO%) 8.6 % 4.8-9.0 N EOSINOPHIL % (test code = EO%) 0.3 % 0.3-3.7 N BASOPHIL % (test code = BA%) 0.5 % 0.0-2.0 N NUCLEATED RBC % (test code = 0.0 % 0-0 N NRBC%) NEUTROPHIL # (test code = NT#) 4.51 x10 3/uL 2.0-7.6 N IMMATURE GRANULOCYTE # (test 0.02 x10 3/uL 0.00-0.03 N code = IG#) LYMPHOCYTE # (test code = LY#) 1.13 x10 3/uL 1.0-3.8 N MONOCYTE # (test code = MO#) 0.54 x10 3/uL 0.1-0.8 N EOSINOPHIL # (test code = EO#) 0.02 x10 3/uL 0.0-0.2 N BASOPHIL # (test code = BA#) 0.03 x10 3/uL 0.0-0.2 N NUCLEATED RBC # (test code = 0.00 x10 3/uL 0.0-0.1 N NRBC#) MANUAL DIFF REQUIRED (test code NO = MDIFF) Notes Date/Time Note Provider Source 2019-12-22 05:38:00-00:00 [id number] [address] PATIENT NAME: SLOAN LAL ADMIT DATE: 12/21/19 ACCOUNT NO: [id number] ROOM NO: AGE: 79 REPORT TYPE: OPERATIVE REPORT SEX: M ADMITTING PHYSICIAN: ATTENDING PHYSICIAN:Kanu Martínez III, MD OPERATION DATE: 12/21/2019 PREOPERATIVE DIAGNOSES: 1. Severe left-sided nasal septal deviation. 2. Bilateral inferior turbinate hypertrophy. 3. Chronic nasal obstruction. 4. History of nasal trauma as a child. POSTOPERATIVE DIAGNOSES: 1. Severe left-sided nasal septal deviation. 2. Bilateral inferior turbinate hypertrophy. 3. Chronic nasal obstruction. 4. History of nasal trauma as a child. PROCEDURE: 1. Septoplasty. 2. Bilateral endoscopic submucosal resection of the inferior turbinates using microdebrider (2.9-mm turbinate blade). SURGEON: Kanu Martínez MD AUTOMOTIVE SERVICE CASHIER: ANESTHESIA: General endotracheal anesthesia. ESTIMATED BLOOD LOSS: 100 mL. URINE OUTPUT: Not recorded. IV FLUIDS: 1000 mL. DRAINS: None. SPECIMENS: 1. Nasal septum. 2. Inferior turbinates. COMPLICATIONS: None. FINDINGS: 1. The anterior most aspect of the nasal septum was severely deviated to the left hand side of the nasal cavity. This was due to the contorted nature of the anterior most aspect of the quadrangular cartilage. The quadrangular cartilage PATIENT NAME: SLOAN LAL 61 bulged into the left nostril creating complete o bstruction anteriorly. Posteriorly, the nasal septum deviated to the ri ght due to deviation of the posterior aspect of the maxillary crest bone and a large bone spur associated with the perpendicular plate of the ethmoid bone . 2. Bilateral jyznrzys-tt-lhepch inferior turbina te hypertrophy. The left inferior turbinate was more hypertrophie d than the right because, although the left nostril was obstructed, the septum primaril y deviated to the right internally. Both inferior turbinates were covere d with a polypoid edematous mucosa that was obstructive on both sides. INDICATIONS FOR PROCEDURE: Lorena Lal is an 79-year-old male, who came to see me in the office for a numbe r of issues. He has had a lifelong history of nasal obstruction, which has worse radha in recent years. He feels like he always has to breathe through his mouth because he suf fers from chronic nasal congestion. He had nasal trauma when he was younger, and this m ay have started his problem. Physical exam revealed a sev ere left-sided septal deviation obstructing the left nostril. This deviation was created by a very co ntorted and twisted nature of the anterior most aspect of the quadrangular car tilage. Internally, the nasal septum deviated to the right due to a la rge bone spur associated with the bony nasal septum. He had bilateral inferior turbinat e hypertrophy. His nasal congestion had never responded to nasal steroid sprays or nasal saline rinses. I recommended the above procedure. PROCEDURE IN DETAIL: Mr. Lal was taken to e operating room and his identification was confirmed using his ID bracel et. He was placed on the operating table in the supine position. General endotracheal anesthesia was initiated by the anesthesia team without complic ation. Timeout was performed. His preoperative COVID-19 testing was negative. Routine COVID-19 precautions were taken throughout the procedure. Both sides of the nasal cavities were de congested using Afrin-soaked pledgets. I could immediately see that the left no stril was obstructed due to a severely bowed nature of the anterior most aspect of the quadrangular cartilage. This cartilage was bowing into th e left nostril and was easily palpable. There was a lot of redundant mucosa and skin around this dev iation on the left lateral aspect of the columella. Intranasally, the septu m deviated severely to the right due to deviation of th e posterior aspect of the maxillary crest bone and a large bone spur associated with the perpendicula r plate of the ethmoid bone. There was associated bilateral inferior turbinate hypertrophy. I injected both sides of the nasal septum an d the anterior heads of the inferior turbinates with 1% lidocaine with 1:100,000 units of epinephrine . A 10 mL were injected in total. His nose was then prepped and draped in the norm al sterile fashion. I first turned my attention to the n taylor septum. I created a left-sided hemitransfixion incision. The incision was made using a #15 blad e. Through this incision, I used a fine [place] elevator to raise mucosal flap s over both sides of the quadrangular cartilage starting at its a nterior most aspect. Raising the flaps revealed the severely contorted nature of the an terior most aspect of the quadrangular cartilage. The anterior most aspect was bulging outward, so I excised a portion in a verti franklyn plane that was approximately 4 mm in thickness. Posterior to this incision, the cartilage was still very contorted. I therefore created an angulated strut of the anterior most aspect of the quadrangular cartilage that remained. The thickness of this s trut was approximately 8 to 9 PATIENT NAME: SLOAN LAL 61 mm. Posterior to this strut, I resected the post erior aspect of the quadrangular cartilage so that it could be used later. Despite we getting this stru t of cartilage, it was still so severely twisted and trying to reposition it in the midline s imply created obstruction in the right nostril. I therefore excised the anterio r aspect of the quadrangular cartilage behind the columella. Once this was excised, I d id appreciate a lot of the redundant skin that was around the left lateral aspect of the columella. The skin had obviously hypertrop hied over the years due to the severe distortion of the anterior aspect of the n taylor septum. In order to create a new resting place for the cartilage behind the columella, I had to use tenotomy scissors to create a pocket between the medial crura of the lower lateral cartilage. This was done and it created a pocket where the new cartilage graft could be positioned. I then turned my attention to the bony portions of the nasal septum. I skeletonized the perpendicular plate of the ethm oid bone and the posterior aspect of the maxillary crest bone. Both of these structures were contributing to his severe right-sided septal deviation intra nasally. I used a Gavino-Sierra punch and a Olivia forceps to resect the perpendicular plate of the ethmoid bone. I used a 4-mm osteo tome to resect the posterior aspect of the maxillary crest bone. I used suction cauteri zation to obtain hemostasis along the free edge of the maxillary crest bone that had been trimmed. Following these maneuvers, the posterior septal flaps rested in the midline. I did create a fenestration in the right-sided sep caity flap over the apex of the septal deviation posteriorly. This was left open to serve as a drainage port postoperatively. The left-si ded septal flap was completely intact, so I was not concerned about a postoperative septal perforati on. I then turned my attention to the inferior turbi nates. I used a 0-degree endoscope during this portion of the procedure. I used a caudal elevator to raise a mucosal flap along t he length of the inferior turbinates on both sides. I then used a 2.9-mm turbinate blade on the [facility] odebrider to perform a submucosal resection of the underlying bone and submucosal tissues of the inferior turbinates. The left inferior turbinate was more hypertrophied than the right due to the posterior right-lana ed septal deviation. The mucosa of the inferior turbinates was polypoid and edematous. The microdebrider did an excellent job of resecting the underlying bone a nd submucosal tissues and reducing the size of the inf erior turbinates on both sides. I then outfractured the inferior turbinates against the lateral nasa l wall. I used suction cauterization to obtain hemo stasis at the puncture sites created in the heads of the inferior turbinates. I also used some direct cauterization to reduce some of the redundant polypoid mucosa over the bodies and tails of the inferior turbinates. Following these maneuvers, b oth nasal passages were widely patent. I then turned my attention back to the nasal sep annelise. I fashioned an approximately 1.5 cm x 8 mm piece of straight quadrangular cartilage to serve as the new columellar cartilage. I tried to suture this to the maxillary crest bone and the residual superi or aspect of the quadrangular cartilage anteriorly, but sutures kept pulling through due to the box gluer nically inflamed and friable nature of the cartilage. I tried 2 pieces of car tilage in this fashion, but both fumbled when I would try to place the 4-0 P DS suture through them. I therefore simply placed the cartilage ag ainst the mucosa on the left hand side where it would reside. I sutured it to t he cartilage using the 4-0 PDS suture. This helped to put the cartilage in posi tion anteriorly behind and between the PATIENT NAME: SLOAN LAL 463 medial crura of the lower lateral cartilages. I then crushed the remaining pieces of cartilage and repo sitioned them immediately behind the anterior strut of quadrangular cartilage. I was able to reconstitute all of the anterior nasal septum using these pieces of cartilage. I then closed the left-sided hemitransfixion incision. Before I did this, there was a large amount of redundant skin and mucosa in this area, so I excised an approximately 2 to 3 mm strip of the skin and mu cosa to cut down on the redundancy of the skin and m ucosa in this area. I primarily excised mucosa with this maneuver. I then closed the left-sided akosua transfixion incision using a 4-0 plain gut placed in an interrupted fashion. I then used 3-0 chromic gut stitches to bolster the septal flaps together to help eliminate some of the redundancy of the skin and mucosa on the left romero nd side of the nasal septum. Once these bolster stitches had tightened up the mucosa on both sides of the nasal cavity, I placed Sellers splints on both lana es of the nasal cavity. The Sellers splints did an additional job of b olstering together the skin and mucosa anteriorly. I then sutured the Sellers splints int o position using a 2-0 nylon stitch placed in a horizontal mattress fashion t hrough the anterior nasal septum. His nose was then cleaned. He was awakened from general anesthesia without complication. He was transported to the PACU in stable condition. Dictated By: Kanu Martínez MD WT: OP:AINSLEY/ECHO/VARSHA Conf#: [id number]/DID#: [id number] Authenticated by Kanu Martínez MD On 02/01 07:06:49 AM at 0707 PATIENT NAME: SLOAN LAL 61 2019-12-21 11:08:00-00:[address] [facility] ([facility]) Brief Discharge Note w/Med Rec REPORT#:[id number] REPORT STATUS: Signed DATE:12/21/19 TIME: 1108 PATIENT: SLOAN LAL UNIT #: [id number] ROOM/BED: : 38 AGE: 79 SEX: M ATTEND: Kanu Lacy II, MD ADM AUTHOR: Kanu Martínez III, MD * ALL edits or amendments must be made on the el [employer]/computer document * Med Rec Med Rec Discharge meds: Stop taking the following medications: ASPIRIN (ASPIRIN) 81 MG TAB.CHEW 81 MILLIGRAM ORAL DAILY. Continue taking these medications: THYROID,PORK (ARMOUR THYROID) 60 MG TAB 1 TABLET ORAL DAILY. SIMVASTATIN (ZOCOR) 20 MG TAB 20 MILLIGRAM ORAL DAILY. Start taking the following new medications: SULFAMETHOXAZOLE/TMP (BACTRIM DS 800/160 MG) 800 MG-160 MG TAB 1 TABLET ORAL EVERY 12 HOURS. Days = 10 Qty = 20 No Refills Instructions: UNTIL FINISHED SODIUM CHLORIDE (OCEAN 0.65%) 45 ML SPRAY 2 SPRAY NASAL DIRECTED. Days = 30 Qty = 500 No Refills HYDROcodone/APAP (NORCO 5/325) 1 TAB TAB 1 TABLET ORAL EVERY 6 HOURS NEEDED. as neede d for PAIN Days = 7 Qty = 28 No Refills Objective VS/I O Last Documented: Result Date Time Pulse Ox 99 12/20 832 B/P 176/76 12/20 832 O2 Delivery Room air 12/20 832 Temp 36.2 12/20 832 Pulse 94 12/20 832 Resp 18 12/20 832 General appearance: alert, awake, oriented Head/Eyes: atraumatic, normocephalic ENT: nasal splints in place; mild bloody nasal d rainage Cardiovascular: regular rate rhythm Respiratory: clear to auscultation Brief Discharge Note w/Med Rec Problem List/A P: 1. Deviated nasal septum 2. 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 He tolerated the procedure well. His pain was controlled and he tolerated a n oral diet. OK to discharge home. Pt. condition on discharge: stable Prescriptions: with patient Additional Discharge Routines: None Diet: Regular Activity: Light Duty, No Lifting >10lbs, No Stre nuous Activity (for one week) Wound/dressing care: Nasal saline spray 2 sprays in each nostril QID and prn; keep head elevated - sleep on 3 to 4 pillows. Follow-up Appointments Attending Physician: Attending Physician: Kanu Martínez III, MD Attending physician follow up timeframe: In 3 days at 0710 [facility] #:[id number] END OF REPORT 2019-12-17 14:21:00-00:00 [id number] [address] PATIENT NAME: SLOAN LAL ADMIT DATE: ACCOUNT NO: [id number] ROOM NO: AGE: 79 REPORT TYPE: eELECTROCARDIOGRAM REPORT SEX: M ADMITTING PHYSICIAN: ATTENDING PHYSICIAN:Kanu Martínez III, MD Order: [id number] Test Reason : PRE-OP Test Date/Time Stamp: SatDec 17 2019 14:21:30 Blood Pressure : / mmHG Vent. Rate : 083 BPM Atrial Rate : 083 BPM P-R Int : 240 ms QRS Dur : 090 ms QT Int : 380 ms P-R-T Axes : 085 004 047 degree s QTc Int : 446 ms Sinus rhythm with 1st degree AV block with frequ ent and consecutive premature ventricular complexes and V. couplets Possible Inferior infarct , age undetermined Cannot rule out Anterior infarct , age undetermi radha Abnormal ECG PRE_OP Confirmed by ANA MCMAHAN, RANDA ([id number]) on 020 3:46:47 PM Referred By: Kanu Martínez Confirmed by:WILLIAM PEREZ MD at 0356 PATIENT NAME: SLOAN LAL 61
--- NOTE | 2022-09-08 17:24 | RAD REPORT ---
EXAM DESCRIPTION: CT - Ct Stroke Brain Wo Cont - 09/08/2022 5:18 pm CLINICAL HISTORY: STROKE ALERT Headache, drowsiness, CVA symptomology COMPARISON: No comparisons TECHNIQUE: All CT scans are performed using dose optimization technique as appropriate and may inclu de automated exposure control or mA/KV adjustment according to patient size. FINDINGS: No intracranial hemorrhage, hydrocephalus or extra-axial fluid collection.Mild generalized brain atrophy is present with moderate periventricular and deep white matter chronic microvascular i schemic changes.No areas of brain edema or evidence of midline shift. The paranasal sinuses and mastoids are clear. The calvarium is intact. Vertebrobasilar mild atheroscl erosis. IMPRESSION: No acute intracranial abnormality. If there is continued clinical concern for CVA, MR imaging of the brain would be recommended. The findings were discussed with Dr. Gil in the ER On 09/08/2022 at 5:18 p.m. by telephone.
[2022-09-08] MEDS ORDERED: FOLIC ACID 5 MG/ML VIAL ONE (17:38)
[2022-09-08] MEDS ORDERED: NA CHLORIDE 0.9% 1,000 ML ONE (17:38)
[2022-09-08 17:55] LABS: Absolute Lymphocytes (CBC) 1.2 K/uL (0.7-4.9); Hematocrit 47.2 % (39.6-49.0); Lymphocytes % 21.1 % (15.3-44.8); MCV 93.1 fL (80-100); MPV 8.9 fL (7.6-11.3); RBC Red Blood Cell Count 5.07 M/uL (4.33-5.43)
[2022-09-08 18:11] LABS: ALT/SGPT 27 U/L (16-61); AST/SGOT 30 U/L (15-37); Albumin 4.3 g/dL (3.4-5.0); Alkaline Phosphatase 73 U/L (45-117); BUN Blood Urea Nitrogen 21 mg/dL (7-18); Bicarbonate 26 mEq/L (21-32); Bilirubin Direct 0.2 mg/dL (0-0.2); Bilirubin Indirect, Calculated 0.6 mg/dL (0.2-0.8); Bilirubin Total 0.8 mg/dL (0.2-1.0); C-Reactive Protein < 2.90 mg/L (<3.00); Glomerular Filtration Rate 56 ml/min (=/>90); Glucose Level 98 mg/dL (74-106); Lipase 27 U/L (13-75); Magnesium 2.4 mg/dL (1.6-2.4); NT PRO-BNP 132 pg/mL (<450); Potassium 3.7 mEq/L (3.5-5.1); Protein, Total 8.5 g/dL (6.4-8.2); Sodium Level 136 mEq/L (136-145); Troponin High Sensitivity 10.5 pg/mL (<58.9)
[2022-09-08 18:14] LABS: Specific Gravity < 1.005 (1.005-1.030); Urine Bilirubin NEGATIVE (Negative); Urine Blood Negative (Negative); Urine Clarity Clear (Clear); Urine Color Light-Yellow (Yellow); Urine Glucose NEGATIVE (Negative); Urine Protein NEGATIVE (Negative); Urine Urobilinogen Normal (Normal)
--- NOTE | 2022-09-08 18:17 | ER ---
Nurse's Notes [facility] Name: Saeid Rosas Age: 81 yrs Sex: Male : 1940 Arrival Date: 09/08/2022 Time: 17:04 Bed 16 Private MD: Diagnosis: Weakness;Paresthesia of skin;Palpitations Presentation: 09/08 17:08 Chief complaint: Intermittent right sided weakness, numbness, facial numbness, and hb difficulty walking that started last night at 830 pm. Reports recent CVA with no deficits. Coronavirus screen: At this time, the client does not indicate any symptoms associated with coronavirus-19. Ebola Screen: No symptoms or risks identified at this time. 17:08 Method Of Arrival: Ambulatory hb 17:09 Initial Sepsis Screen: Does the patient meet any 2 criteria? No. Patient's initial hb sepsis screen is negative. Does the patient have a suspected source of infection? No. Patient's initial sepsis screen is negative. Risk Assessment: Do you want to hurt yourself or someone else? Patient reports no desire to harm self or others. Onset of symptoms was September 07, 2022 at 20:30. 17:09 Acuity: ANDREA 2 hb 19:11 Pre-hospital glucose is not applicable to this patient. ko1 Triage Assessment: 18:00 The onset of the patients symptoms was more than three but less than six hours ago. The ko1 onset of the patients symptoms was September 08, 2022 at 14:00. General: Appears in no apparent distress. comfortable, Behavior is calm, cooperative, appropriate for age. Pain: Denies pain. Neuro: Reports numbness in mouth and left arm and right arm. Stroke Activation: Symptom onset > 6 hours Physician: Stroke Attending; Name: ; Notified At: ; Arrived At: Physician: Chief Stroke Resident; Name: ; Notified At: ; Arrived At: Physician: Stroke Resident; Name: ; Notified At: ; Arrived At: Physician: ED Attending; Name: ; Notified At: ; Arrived At: Physician: ED Resident; Name: ; Notified At: ; Arrived At: Historical: - Allergies: 17:31 No Known Allergies; jl7 - Home Meds: 17:24 armor thyroid [Active]; aspirin 81 mg Oral chew 1 tab once daily [Active]; hb ezetimibe-simvastatin oral [Active]; - PMHx: 17:24 Back pain; Hyperlipidemia; Hypothyroidism; Myocardial infarction; CVA; hb - PSHx: 17:24 Heart Stents; hb - Immunization history:: Adult Immunizations up to date. - Social history:: Smoking status: Patient denies any tobacco usage or history of. - Family history:: not pertinent. Screenin:45 [facility] ED Fall Risk Assessment (Adult) History of falling in the last 3 months, ko1 including since admission No falls in past 3 months (0 pts) Confusion or Disorientation No (0 pts) Intoxicated or Sedated No (0 pts) Impaired Gait No (0 pts) Mobility Assist Device Used No (0 pt) Altered Elimination No (0 pt) Score/Fall Risk Level 0 - 2 = Low Risk Oriented to surroundings, Maintained a safe environment, Educated pt \T\ family on fall prevention, incl call for assistance when getting out of bed, Assessed \T\ reinforced patient's understanding of fall precautions, Provided non-skid footwear, Hourly rounding (assess needs \T\ fall precautionary measures) done, Used ambulatory aids as needed (educated on \T\ assisted with), Used gait belt as appropriate. Abuse screen: Denies threats or abuse. Denies injuries from another. Nutritional screening: No deficits noted. Tuberculosis screening: No symptoms or risk factors identified. Assessment: 17:09 Reassessment: Pt to CT via wheelchair with MIKE Cooley. jl7 19:13 VAN Scoring: Arm Drift: Patients demonstrates NO arm weakness. Patient is VAN Negative. ko1 Visual Disturbance: No visual disturbance noted. Aphasia: No aphasia noted. Neglect: No neglect noted. 19:15 TNKase (Tenecteplase) Screening: Contraindications: Patient reports onset of signs and vc1 symptoms of stroke greater than 6 hours ago:. 19:15 Reassessment: Patient and/or family updated on plan of care and expected duration. Pain vc1 level reassessed. Patient is alert, oriented x 3, equal unlabored respirations, skin warm/dry/pink. 20:00 Reassessment: No changes from previously documented assessment. Patient and/or family vc1 updated on plan of care and expected duration. Pain level reassessed. Patient is alert, oriented x 3, equal unlabored respirations, skin warm/dry/pink. Patient denies pain at this time. Vital Signs: 17:08 BP 178 / 99; Pulse 93; Resp 18; Temp 98.1(O); Pulse Ox 96% on R/A; Weight 77.11 kg; hb Height 5 ft. 7 in. ; Pain 0/10; 17:45 BP 133 / 85; Pulse 81; Resp 18; Pulse Ox 99% ; ko1 20:11 BP 165 / 92; Pulse 77; Resp 16; Pulse Ox 98% ; vc1 17:08 Body Mass Index 26.63 (77.11 kg, 170.18 cm) hb 17:08 Pain Scale: Adult hb NIH Stroke Scale Scores: 19:13 NIHSS Score: 0 ko1 ED Course: 17:07 Patient arrived in ED. kj1 17:09 Maggy Ricketts, RN is Primary Nurse. jl7 17:09 Javier Gil MD is Attending Physician. janneth 17:14 Farrah Aguirre, RN is Primary Nurse. ko1 17:19 CT Stroke Brain w/o Contrast In Process Unspecified. EDMS 17:24 Triage completed. hb 17:26 Arm band placed on. hb 17:34 Missed attempt(s): 20 gauge in left forearm. mm9 17:35 Patient has correct armband on for positive identification. Fall risk band placed. Bed mm9 in low position. Call light in reach. Side rails up X 1. Adult w/ patient. Pillow given. Client placed on continuous cardiac and pulse oximetry monitoring. NIBP monitoring applied. 17:45 Provided Education on: NA. ko1 17:45 Inserted saline lock: 20 gauge in right forearm, using aseptic technique. Blood ko1 collected. 17:48 CRP Sent. ko1 17:48 Lipase Sent. ko1 17:48 Basic Metabolic Panel Sent. ko1 17:48 CBC with Diff Sent. ko1 17:48 LFT's Sent. ko1 17:48 Magnesium Sent. ko1 17:48 NT PRO-BNP Sent. ko1 17:48 PT-INR Sent. ko1 17:48 Troponin HS Sent. ko1 18:15 Johnathan Dozier MD is Hospitalizing Provider. janneth 18:32 XRAY Chest (1 view) In Process Unspecified. EDMS 18:38 CT Head Angio In Process Unspecified. EDMS 18:38 CT Neck Angio In Process Unspecified. EDMS 19:13 No provider procedures requiring assistance completed. ko1 19:15 Report received from Farrah Dye RN. vc1 20:41 Patient admitted, IV remains in place. vc1 Administered Medications: 17:31 Drug: NS 0.9% IV 1000 ml Route: IV; Rate: 1 bolus; Site: left antecubital; ko1 17:31 Drug: foLIC Acid IVPB 1 mg Route: IVPB; Site: left antecubital; ko1 17:41 CANCELLED (Duplicate Order): Aspirin PO Chewable Tablet 324 mg PO once; 81 mg tablets x janneth 4 Medication: 19:14 VIS not applicable for this client. ko1 Point of Care Testin:15 blood glucose 98 vc1 Ranges: Outcome: 18:16 Decision to Hospitalize by Provider. janneth 20:40 Admitted to Tele accompanied by tech, via stretcher, Report called to MIKE Drake vc1 20:40 Condition: good 20:40 Instructed on the need for admit. 20:41 Patient left the ED. vc1 NIH Stroke Scale - NIH Stroke Score Date: 09/08/2022 Time: 19:13 Total Score = 0 10. Dysarthria (speech clarity - read or repeat words) - 0(Normal) 11. Extinction and Inattention (visual/tactile/auditory/spatial/personal) - 0(No abnormality) 1a. Level of Consciousness (LOC) - 0(Alert) 1b. Level of Consciousness (LOC) (Month \T\ Age) - 0(Both) 1c. LOC Commands (Open \T\ Closes Eyes/Quality Control Expert) - 0(Both) 2. Best Gaze (Lateral Gaze Paresis) - 0(Normal) 3. Visual Field Loss - 0(No visual loss) 4. Facial Palsy - 0(Normal) 5a. Left Arm: Motor (10-second hold) - 0(No drift) 5b. Right Arm: Motor (10-second hold) - 0(No drift) 6a. Left Leg: Motor (5-second hold - always test supine) - 0(No drift) 6b. Right Leg: Motor (5-second hold - always test supine) - 0(No drift) 7. Limb Ataxia (finger/nose \T\ heel/jeffery - test with eyes open) - 0(Absent) 8. Sensory Loss (pinprick arms/legs/face) - 0(Normal) 9. Best Language: Aphasia (description/naming/reading) - 0(No aphasia) Initials: ko1 Signatures: Dispatcher [employer] Javier Flores MD MD cha Baxter, Heather, RN RN Maggy Fischer, RN RN jl7 Trish Flores1 Archana Higgins RN RN 1 Farrah Aguirre RN RN ko1 Patricia Meredith mm9
--- NOTE | 2022-09-08 18:17 | EDPHYS ---
Physician Documentation [facility] Name: Saeid Rosas Age: 81 yrs Sex: Male : 1940 Arrival Date: 09/08/2022 Time: 17:04 Bed 16 Private MD: ED Physician Javier Gil HPI: 09/08 17:43 This 81 yrs old Male presents to ER via Ambulatory with complaints of S/S of janneth Possible Stroke. 17:43 The patient's problem is reported as paresthesias, in right upper extremity, in left janneth lower extremity, in right side of face. Onset: The symptoms/episode began/occurred today, yesterday. Duration: This was a single incident. Context: the episode(s) was witnessed, by family, daughter, symptoms became apparent 200 pm. The symptoms are alleviated by nothing. The symptoms are aggravated by nothing. Associated signs and symptoms: The patient has no apparent associated signs or symptoms. Severity of symptoms: At their worst the symptoms were mild in the emergency department the symptoms are unchanged. Severity of symptoms: At their worst the symptoms were. Patient's baseline: Neuro:. Historical: - Allergies: 17:31 No Known Allergies; jl7 - Home Meds: 17:24 armor thyroid [Active]; aspirin 81 mg Oral chew 1 tab once daily [Active]; hb ezetimibe-simvastatin oral [Active]; - PMHx: 17:24 Back pain; Hyperlipidemia; Hypothyroidism; Myocardial infarction; CVA; hb - PSHx: 17:24 Heart Stents; hb - Immunization history:: Adult Immunizations up to date. - Social history:: Smoking status: Patient denies any tobacco usage or history of. - Family history:: not pertinent. ROS: 17:43 Constitutional: Negative for fever, chills, and weight loss, Eyes: Negative for injury, janneth pain, redness, and discharge, ENT: Negative for injury, pain, and discharge, Neck: Negative for injury, pain, and swelling, Cardiovascular: Negative for chest pain, palpitations, and edema, Respiratory: Negative for shortness of breath, cough, wheezing, and pleuritic chest pain, Abdomen/GI: Negative for abdominal pain, nausea, vomiting, diarrhea, and constipation, Back: Negative for injury and pain, : Negative for injury, bleeding, discharge, and swelling, MS/Extremity: Negative for injury and deformity, Skin: Negative for injury, rash, and discoloration, Psych: Negative for depression, anxiety, suicide ideation, homicidal ideation, and hallucinations, Allergy/Immunology: Negative for hives, rash, and allergies, Endocrine: Negative for neck swelling, polydipsia, polyuria, polyphagia, and marked weight changes, Hematologic/Lymphatic: Negative for swollen nodes, abnormal bleeding, and unusual bruising. 17:43 Neuro: Positive for headache, weakness, of the right arm and left arm, right arm grater than left. Exam: 17:43 Radiologist reports: yung lagunas 17:43 Constitutional: This is a well developed, well nourished patient who is awake, alert, and in no acute distress. Head/Face: Normocephalic, atraumatic. Eyes: Pupils equal round and reactive to light, extra-ocular motions intact. Lids and lashes normal. Conjunctiva and sclera are non-icteric and not injected. Cornea within normal limits. Periorbital areas with no swelling, redness, or edema. ENT: Nares patent. No nasal discharge, no septal abnormalities noted. Tympanic membranes are normal and external auditory canals are clear. Oropharynx with no redness, swelling, or masses, exudates, or evidence of obstruction, uvula midline. Mucous membranes moist. Neck: Trachea midline, no thyromegaly or masses palpated, and no cervical lymphadenopathy. Supple, full range of motion without nuchal rigidity, or vertebral point tenderness. No Meningismus. Chest/axilla: Normal chest wall appearance and motion. Nontender with no deformity. No lesions are appreciated. Cardiovascular: Regular rate and rhythm with a normal S1 and S2. No gallops, murmurs, or rubs. Normal PMI, no JVD. No pulse deficits. Respiratory: Lungs have equal breath sounds bilaterally, clear to auscultation and percussion. No rales, rhonchi or wheezes noted. No increased work of breathing, no retractions or nasal flaring. Abdomen/GI: Soft, non-tender, with normal bowel sounds. No distension or tympany. No guarding or rebound. No evidence of tenderness throughout. Back: No spinal tenderness. No costovertebral tenderness. Full range of motion. Male : Normal genitalia with no discharge or lesions. Skin: Warm, dry with normal turgor. Normal color with no rashes, no lesions, and no evidence of cellulitis. MS/ Extremity: Pulses equal, no cyanosis. Neurovascular intact. Full, normal range of motion. Neuro: Awake and alert, GCS 15, oriented to person, place, time, and situation. Cranial nerves II-XII grossly intact. Motor strength 5/5 in all extremities. Sensory grossly intact. Cerebellar exam normal. Normal gait. Psych: Awake, alert, with orientation to person, place and time. Behavior, mood, and affect are within normal limits. 17:59 ECG was reviewed by the Attending Physician. janneth Vital Signs: 17:08 BP 178 / 99; Pulse 93; Resp 18; Temp 98.1(O); Pulse Ox 96% on R/A; Weight 77.11 kg; hb Height 5 ft. 7 in. ; Pain 0/10; 17:45 BP 133 / 85; Pulse 81; Resp 18; Pulse Ox 99% ; ko1 20:11 BP 165 / 92; Pulse 77; Resp 16; Pulse Ox 98% ; vc1 17:08 Body Mass Index 26.63 (77.11 kg, 170.18 cm) hb 17:08 Pain Scale: Adult hb NIH Stroke Scale Scores: 19:13 NIHSS Score: 0 ko1 MDM: 17:09 Patient medically screened. janneth 17:51 Differential diagnosis: CVA, TIA, Dementia, Parkinson disease, metabolic disorder, drug janneth effects. Data reviewed: vital signs, nurses notes, lab test result(s), EKG, radiologic studies, CT scan, plain films. Consideration of Admission/Observation Escalation of care including admission/observation considered. I considered the following discharge prescriptions or medication management in the emergency department Medications were administered in the Emergency Department. See MAR. 18:17 Independent interpretation of the following test(s) in the Emergency Department EKG: janneth See my EKG interpretation above. Test considered but Not performed: MRI: no mri brain. Historians other than the Patient: Daughter/Son: daughter, informed. Care significantly affected by the following chronic conditions: Hypertension, arrythmia, back pain. Counseling: I had a detailed discussion with the patient and/or guardian regarding: the historical points, exam findings, and any diagnostic results supporting the discharge/admit diagnosis, the presence of at least one elevated blood pressure reading (>120/80) during this emergency department visit, lab results, radiology results, the need for further work-up and treatment in the hospital. 18:32 ED course: fredy kline agree no tnk, asp, plavix, hydrate. [facility] 09/08 17:16 Order name: Basic Metabolic Panel; Complete Time: 18:16 [facility] 09/08 17:16 Order name: CBC with Diff; Complete Time: 18:16 [facility] 09/08 17:16 Order name: LFT's; Complete Time: 18:16 [facility] 09/08 17:16 Order name: Magnesium; Complete Time: 18:16 [facility] 09/08 17:16 Order name: NT PRO-BNP; Complete Time: 18:16 [facility] 09/08 17:16 Order name: PT-INR [facility] 09/08 17:16 Order name: Troponin HS; Complete Time: 18:16 [facility] 09/08 17:16 Order name: Lipase; Complete Time: 18:16 [facility] 09/08 17:16 Order name: CRP; Complete Time: 18:16 [facility] 09/08 17:16 Order name: Urinalysis w/ reflexes; Complete Time: 18:16 [facility] 09/08 17:16 Order name: XRAY Chest (1 view); Complete Time: 19:04 [facility] 09/08 17:16 Order name: CT Stroke Brain w/o Contrast; Complete Time: 17:54 [facility] 09/08 17:16 Order name: CT Head Angio; Complete Time: 19:04 [facility] 09/08 17:16 Order name: CT Neck Angio; Complete Time: 19:04 [facility] 09/08 17:16 Order name: EKG; Complete Time: 17:18 janneth 09/08 18:25 Order name: CONS Physician Consult [facility] 09/08 17:16 Order name: Cardiac monitoring; Complete Time: 17:25 [facility] 09/08 17:16 Order name: EKG - Nurse/Tech; Complete Time: 17:25 [facility] 09/08 17:16 Order name: IV Saline Lock; Complete Time: 17:48 [facility] 09/08 17:16 Order name: Labs collected and sent; Complete Time: 17:48 [facility] 09/08 17:16 Order name: O2 Per Protocol; Complete Time: 17:25 [facility] 09/08 17:16 Order name: O2 Sat Monitoring; Complete Time: 17:25 [facility] 09/08 18:38 Order name: Labs - recollect needed: RECOLLECT COAG TUBE/ HEMOLYZED PER MILIND; eb Complete Time: 20:02 EC:59 Rate is 88 beats/min. Rhythm is regular. QRS [place] is Normal. [place] interval is normal. QRS janneth interval is normal. QT interval is normal. No Q waves. T waves are Normal. No ST changes noted. Clinical impression: Abnormal EKG without significant change and No evidence of ischemia. Interpreted by me. Reviewed by me. Administered Medications: 17:31 Drug: NS 0.9% IV 1000 ml Route: IV; Rate: 1 bolus; Site: left antecubital; ko1 17:31 Drug: foLIC Acid IVPB 1 mg Route: IVPB; Site: left antecubital; ko1 17:41 CANCELLED (Duplicate Order): Aspirin PO Chewable Tablet 324 mg PO once; 81 mg tablets x janneth 4 Point of Care Testin:15 blood glucose 98 vc1 Ranges: Critical Glucose Levels:Adult <50 mg/dl or >400 mg/dl <40 mg/dl or >180 mg/dl Disposition Summary: 09/08/22 18:16 Hospitalization Ordered Hospitalization Status: Observation janneth Provider: Johnathan Kline cha Location: Telemetry/MedSurg (Inpatient) janneth Condition: Fair janneth Problem: new janneth Symptoms: have improved janneth Bed/Room Type: Standard janneth Room Assignment: 408(09/08/22 18:39) Diagnosis - Weakness janneth - Paresthesia of skin janneth - Palpitations janneth Forms: - Medication Reconciliation Form janneth - SBAR form janneth NIH Stroke Scale - NIH Stroke Score Date: 09/08/2022 Time: 19:13 Total Score = 0 10. Dysarthria (speech clarity - read or repeat words) - 0(Normal) 11. Extinction and Inattention (visual/tactile/auditory/spatial/personal) - 0(No abnormality) 1a. Level of Consciousness (LOC) - 0(Alert) 1b. Level of Consciousness (LOC) (Month \T\ Age) - 0(Both) 1c. LOC Commands (Open \T\ Closes Eyes/Orthopedic Specialist) - 0(Both) 2. Best Gaze (Lateral Gaze Paresis) - 0(Normal) 3. Visual Field Loss - 0(No visual loss) 4. Facial Palsy - 0(Normal) 5a. Left Arm: Motor (10-second hold) - 0(No drift) 5b. Right Arm: Motor (10-second hold) - 0(No drift) 6a. Left Leg: Motor (5-second hold - always test supine) - 0(No drift) 6b. Right Leg: Motor (5-second hold - always test supine) - 0(No drift) 7. Limb Ataxia (finger/nose \T\ heel/jeffery - test with eyes open) - 0(Absent) 8. Sensory Loss (pinprick arms/legs/face) - 0(Normal) 9. Best Language: Aphasia (description/naming/reading) - 0(No aphasia) Initials: ko1 Signatures: Dispatcher [employer] EDMyrna Montes RN RN Javier Su MD MD cha Baxter, Heather RN RN Maggy Fischer RN RN jl7 Abril Salinas Kathy RN RN ko1 Corrections: (The following items were deleted from the chart) 17:41 17:41 Aspirin PO Chewable Tablet 324 mg PO once; 81 mg tablets x 4 ordered. [facility] 18:39 18:16 [facility] 18:39 18:[address] [place] [address]
--- NOTE | 2022-09-08 18:37 | RAD REPORT ---
EXAM DESCRIPTION: RAD - Chest Single View - 09/08/2022 6:31 pm CLINICAL HISTORY: COUGH Chest pain. COMPARISON: Chest Single View dated 12/26/2020 FINDINGS: Portable technique limits examination quality. The lungs are emphysematous but grossly clear. The heart is moderately enlarged. No displaced fractur es.Sternotomy wires. IMPRESSION: No acute intrathoracic process suspected.
--- NOTE | 2022-09-08 18:43 | RAD REPORT ---
EXAM DESCRIPTION: CT - Head angio - 09/08/2022 6:36 pm CLINICAL HISTORY: TIA Headache, drowsiness, CVA symptomology COMPARISON: Ct Stroke Brain Wo Cont dated 09/08/2022 TECHNIQUE: CT angiography of the head was performed with MIPs. All CT scans are performed using dose optimization technique as appropriate and may include automated exposure control or mA/KV adjustment according to patient size. FINDINGS: No evidence of large vessel occlusion. No evidence of aneurysm is detected. No flow-limiti ng stenosis or vascular malformation identified. Antegrade flow is seen in the vertebral arteries. The vertebral arteries are codominant. The visualized dural venous sinuses are patent. IMPRESSION: No significant flow abnormality is detected.
--- NOTE | 2022-09-08 18:48 | RAD REPORT ---
EXAM DESCRIPTION: CT - Neck Angio - 09/08/2022 6:37 pm CLINICAL HISTORY: PAIN Neck pain and swelling COMPARISON: No comparisons TECHNIQUE: CT angiography of the neck vessels was performed with MIPs. All CT scans are performed using dose optimization technique as appropriate and may include automated exposure control or mA/KV adjustment according to patient size. FINDINGS: A left aortic arch is identified with normal three vessel configuration of the great vesse ls. No significant flow abnormality is seen of the common carotid bilaterally. Mild mixed plaque in both carotid bulbs. No significant carotid stenosis. Right vertebral artery shows focal plaque and stenosis proximally. Left vertebral artery is slightly dominant without stenosis. IMPRESSION: No significant flow abnormality of the neck vessels is identified. Mild plaque in both carotid bulbs. NASCET criteria used. Mild 0-49% stenosis Moderate 50-69% stenosis Severe 70-99% stenosis
[2022-09-08 20:54] VITALS: O2SAT 98
[2022-09-08] MEDS: ATORVASTATIN 20 MG TAB PO SCH ×2 (21:31→23:28)
[2022-09-08] MEDS ORDERED: ONDANSETRON 4 MG/2 ML VIAL IV PRN (21:31)
[2022-09-08] MEDS ORDERED: ACETAMINOPHEN 325 MG TABLET PO PRN (21:35)
[2022-09-08 22:15] VITALS: BMI 26.6
[2022-09-08] MEDS: NA CHLORIDE 0.9% 1,000 ML IV SCH (23:27)
[2022-09-08] MEDS: FAMOTIDINE 20 MG/2 ML VIAL IV SCH (23:28)
[2022-09-09 05:02] LABS: Absolute Lymphocytes (CBC) 1.1 K/uL (0.7-4.9); Hematocrit 39.9 % (39.6-49.0); Lymphocytes % 27.9 % (15.3-44.8); MCV 93.7 fL (80-100); MPV 8.8 fL (7.6-11.3); RBC Red Blood Cell Count 4.25 M/uL (4.33-5.43)
[2022-09-09 05:15] LABS: Potassium 4.2 mEq/L (3.5-5.1)
[2022-09-09] MEDS: NA CHLORIDE 0.9% 1,000 ML IV SCH (08:11)
[2022-09-09] MEDS: FAMOTIDINE 20 MG/2 ML VIAL IV SCH (08:11)
[2022-09-09 08:56] VITALS: BP 141/78; TEMP 97.3
[2022-09-09] MEDS ORDERED: ASPIRIN EC 81 MG TAB PO SCH (09:00)
[2022-09-09] MEDS ORDERED: CLOPIDOGREL 75 MG TABLET PO SCH (09:00)
[2022-09-09] MEDS ORDERED: ASPIRIN 81 MG CHEWABLE TABLET PO SCH (09:00)
[2022-09-09] MEDS ORDERED: FOLIC ACID 1 MG in NA CHLORIDE 0.9% 50 ML IV SCH (09:00)
--- NOTE | 2022-09-09 16:22 | P.SSS ---
Patient History Date of Service: 09/09/22 Reason for admission: R HAND TINGLING AND R LIP ALSO. 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 SHE HAS HAD FLUCTUATING SYMPTOMS OF NUMBNESS R SIDE LIP AND R HAND AND LATER MILD WEAKNESS OF R HAND WEAKNESS. HE IS STABLE NOW. HE HAS BEEN ON PLAVIX FOR TWO DAYS NOW. HE WILL CONTINUE ASPIRIN ADN PLAVIX FOR [address] I DISCUSS[address] WITH DR[address] DELGADO. HIS CAROTID DOPPLER IS NEG. CT B AND CTA ARE NEGATIVE ALSO. 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 moist/pink, EOMI, Sclerae nonicteric Neck: Supple, 2+ carotid pulse no bruit, No LAD, Without JVD or thyroid abnormality Respiratory: Clear to auscultation bilaterally, Normal air movement Cardiovascular: Regular rate/rhythm, Normal S1 S2 Gastrointestinal: Normal bowel sounds, No tenderness Musculoskeletal: No tenderness Integumentary: No rashes Neurological: Normal gait, Normal speech, Normal strength at 5/5 x4 extr, Normal tone, Normal affect Lymphatics: No axilla or inguinal lymphadenopathy - Studies Laboratory Data (last 24 hrs) 09/08/22 17:40: WBC 5.70, Hgb 15.7, Hct 47.2, Plt Count 147 L 09/08/22 17:40: Sodium 136, Potassium 3.7, BUN 21 H, Creatinine 1.27, Glucose 98, Magnesium 2.4, Total Bilirubin 0.8, AST 30, ALT 27, Alkaline Phosphatase 73, Lipase 27 - Diagnosis (Problem(s)) (1) Left-sided cerebrovascular accident (CVA) Status: Acute Plan: HE HAS HAD MINIMAL DEFICIT AND HE IS STABLE. SENSORY CHANGES ARE ONLY EVIDENT. R HAND WEAKNESS IS VERY MILD IF ANY. HE WILL CONT MEDS FU WITH NEURO FU WITH MY OFFICE. MRI MAY NOT CHANGE. WILL FU ON THIS. PROGNOSIS IS GUARDED. - Disposition Disposition: ROUTINE DISCHARGE Condition: FAIR
[2022-09-09] MEDS ORDERED: ENOXAPARIN 40 MG/0.4 ML SQ SCH (17:00)
--- NOTE | 2022-09-10 11:47 | EKG ---
Test Date: 2022-09-08 Test Time: 17:22:54 Front Maker: CATHERINE MEASUREMENT RESULTS: Intervals: Rate: 88 LA: 248 QRSD: 90 QT: 356 QTc: 430 [place]: P: 49 LA: 248 QRS: -30 T: 58 INTERPRETIVE STATEMENTS: Sinus rhythm with sinus arrhythmia with 1st degree AV block with frequent and consecutive premature ventricular complexes Left axis deviation Abnormal ECG Compared to ECG 12/26/2020 06:20:15 Left-axis deviation now present Myocardial infarct finding no longer present Electronically Signed On 09-10-22 11:44:45 CDT by Leo Cotton
== END 2022-09-09 10:37 | disposition home or self-care (01) ==
LOC: ER 17:04 → ERHOLD 18:42 → 4TH 19:57
PROVIDERS: ADMIT Internal Medicine; ATTEND Internal Medicine
DX: I63.9 Cerebral infarction, unspecified (principal); R29.700 NIHSS score 0; E78.5 Hyperlipidemia, unspecified; E03.9 Hypothyroidism, unspecified; I25.2 Old myocardial infarction
CPT/HCPCS: 93005; 85025 ×2; 80048 ×2; 36415; 83735; 85610; 80076; 81003; 84484 ×2; 83690; 83880; 86140; 70496; 70498; 70450; 71045; 96374; 99285; Q9967; J7030 ×3; G0378